=== PATIENT | female | born 1945 | race Caucasian/White ===

== ENCOUNTER → 2018-01-23 09:43 | Outpatient (CLI) | payer OTHER, SELFPAY ==
[2018-01-23 11:00] LABS: Add Manual Diff / Slide Review NO; Basophils Percent Auto 0.6 % (0-2); Eosinophils Percent Auto 1.9 % (2-4); Hematocrit 30.4 % (36-46); Hemoglobin 9.3 g/dL (12.0-16.0); Lymphocytes Percent Auto 19.2 % (25-40); Mean Corpuscular HGB Conc 30.6 % (30-36); Mean Corpuscular Hemoglobin 20.5 PG (26-34); Mean Corpuscular Volume 67.2 fL (80-100); Monocytes Percent Auto 8.6 % (3-14); Neutrophils Absolute Auto 5600 /uL (3000-5900); Neutrophils Percent Auto 69.7 % (50-75); Platelet Count 341 X10^3/uL (150-400); Red Blood Cell Count 4.53 X10^6/uL (4.0-5.2); Red Cell Distribution Width 20.3 % (11.6-14.8)
[2018-01-23 11:17] LABS: Alanine Aminotransferase 32 IU/L (9-52); Albumin Globulin Ratio 1.4 (1.0-2.8); Alkaline Phosphatase 68 U/L (38-126); Anisocytosis 2+; Aspartate Aminotransferase 26 IU/L (14-36); BUN Creatinine Ratio 17.5 (6-22); Bilirubin Total 0.3 mg/dL (0.2-1.3); Blood Urea Nitrogen 14 mg/dL (7-17); Calcium 9.1 mg/dL (8.4-10.2); Carbon Dioxide 31 mmol/L (22-32); Chloride 103 mmol/L (98-107); Estimated Glomerular Filt Rate > 60.0 mL/min (>60); Globulin 2.9 g/dL (1.7-4.1); Glucose 49 mg/dL (80-110); HEMOLYSIS < 15 (0-50); Hemoglobin A1C% w Est Avg Glu 8.1 % (4.0-6.0); Ovalocytes 1+; Potassium 4.2 mmol/L (3.4-5.1); Sodium 143 mmol/L (137-145); Target Cells 1+; Total Protein 6.9 g/dL (6.3-8.2)
[2018-01-23 11:23] LABS: HEMOLYSIS < 15 (0-50); Iron 27 ug/dL (37-170)
[2018-01-23 11:33] LABS: Percent Iron Saturation 6 % (15-50); Total Iron Binding Capacity 481 ug/dL (265-497); Transferrin 391 mg/dL (206-381)
== END ==
PROVIDERS: Family Provider Internal Medicine; PCP Internal Medicine; Visit Provider Internal Medicine
DX: J44.9 Chronic obstructive pulmonary disease, unspecified (principal); E10.9 Type 1 diabetes mellitus without complications
CPT/HCPCS: 36415; 80053; 83036; 83540; 83550; 85025

== ENCOUNTER → 2018-02-13 12:30 | Outpatient (CLI) | payer OTHER, SELFPAY ==
--- NOTE | 2018-02-13 12:32 | DI.RAD.S_ITS ---
PROCEDURE: XR ANKLE RT MIN 3V INDICATIONS: RIGHT ANKLE PAIN TECHNIQUE: 3 views of the ankle were acquired. COMPARISON: None. FINDINGS: Bones: No fractures or dislocations. Ankle mortise is normally aligned. No suspicious bony lesions. Soft tissues: No tibiotalar joint effusion. Achilles tendon appears normal. IMPRESSION: No acute bone or joint abnormality. Dictated by: Rahul Nash M.D. on 02/13/2018 at 12:51 Approved by: Rahul Nash M.D. on 02/13/2018 at 12:52
== END ==
PROVIDERS: Family Provider Internal Medicine; PCP Internal Medicine; Visit Provider Physician Assistant
DX: M25.571 Pain in right ankle and joints of right foot (principal)
CPT/HCPCS: 73610

== ENCOUNTER → 2018-02-18 11:12 | Outpatient (CLI) | payer OTHER, SELFPAY ==
[2018-02-18 12:30] LABS: Erythrocyte Sedimentation Rate 7 MM/HR (0-20)
[2018-02-18 17:20] LABS: Uric Acid 2.6 mg/dL (2.5-6.2)
[2018-02-18 17:21] LABS: C-Reactive Protein Quant < 0.5 mg/dL (<1.0)
== END ==
PROVIDERS: Family Provider Internal Medicine; PCP Internal Medicine; Visit Provider Internal Medicine
DX: M47.26 Other spondylosis with radiculopathy, lumbar region (principal)
CPT/HCPCS: 36415; 84550; 85651; 86140

== ENCOUNTER → 2018-03-07 09:33 | Outpatient (CLI) | payer OTHER, SELFPAY ==
[2018-03-07 10:43] LABS: Add Manual Diff / Slide Review NO; Basophils Percent Auto 0.9 % (0-2); Hematocrit 33.2 % (36-46); Hemoglobin 10.4 g/dL (12.0-16.0); Lymphocytes Percent Auto 11.1 % (25-40); Mean Corpuscular HGB Conc 31.3 % (30-36); Mean Corpuscular Hemoglobin 22.9 PG (26-34); Neutrophils Absolute Auto 6800 /uL (3000-5900); Platelet Count 342 X10^3/uL (150-400); Red Blood Cell Count 4.54 X10^6/uL (4.0-5.2); Red Cell Distribution Width 26.6 % (11.6-14.8); White Blood Cell Count 8.5 X10^3/uL (4.5-11.0)
[2018-03-07 10:49] LABS: Prothrombin Time 10.6 SECONDS (10.1-12.7)
[2018-03-07 10:52] LABS: HEMOLYSIS < 15 (0-50); Iron 32 ug/dL (37-170)
[2018-03-07 10:54] LABS: Alanine Aminotransferase 36 IU/L (9-52); Albumin 4.1 g/dL (3.5-5.0); Albumin Globulin Ratio 1.6 (1.0-2.8); Alkaline Phosphatase 79 U/L (38-126); Aspartate Aminotransferase 28 IU/L (14-36); BUN Creatinine Ratio 23.3 (6-22); Bilirubin Direct 0.3 mg/dL (0.0-0.4); Bilirubin Total 0.4 mg/dL (0.2-1.3); Blood Urea Nitrogen 21 mg/dL (7-17); Calcium 9.3 mg/dL (8.4-10.2); Carbon Dioxide 29 mmol/L (22-32); Chloride 97 mmol/L (98-107); Estimated Glomerular Filt Rate > 60.0 mL/min (>60); Globulin 2.5 g/dL (1.7-4.1); Glucose 289 mg/dL (80-110); HEMOLYSIS < 15 (0-50); Potassium 4.5 mmol/L (3.4-5.1); Sodium 136 mmol/L (137-145); Total Protein 6.6 g/dL (6.3-8.2)
[2018-03-07 11:04] LABS: Percent Iron Saturation 8 % (15-50); Total Iron Binding Capacity 416 ug/dL (265-497); Transferrin 354 mg/dL (206-381)
[2018-03-07 11:15] LABS: Anisocytosis 3+; Hypochromasia 3+; Microcytosis 3+
== END ==
PROVIDERS: Family Provider Internal Medicine; PCP Internal Medicine; Visit Provider Physician Assistant
DX: D50.9 Iron deficiency anemia, unspecified (principal); R19.5 Other fecal abnormalities
CPT/HCPCS: 36415; 80053; 82248; 83540; 83550; 85025; 85610

== ENCOUNTER 2018-03-17 06:32 | Day surgery (SDC) | payer OTHER, SELFPAY ==
[2018-03-17] MEDS: PROPARACAINE 0.5% OPHTH SOL 2 DROPS EYE-OP (06:54)
[2018-03-17] MEDS: CATARACT EYE COMPOUND (10 DROPS/SYRINGE) 3 DROPS EYE-OP (07:00)
[2018-03-17 07:01] VITALS: BMI 23.8
[2018-03-17 07:07] VITALS: BP 187/86; PULSE 66; RESP 16; TEMP 36.4; O2SAT 95
--- NOTE | 2018-03-17 07:44 | PM.PREOP ---
Pre-operative Note Interval Note Changes: No
--- NOTE | 2018-03-17 07:45 | P.OP_ITS ---
Operative Date/Time/Diagnoses Pre-op diagnosis: Cataract Right eye Post-op diagnosis: same Procedure & Clinicians Procedure: Cataract Surgery Same procedure as scheduled: Yes Surgeon: Ion Francis Anesthesia Type: MAC +/- and Sedation Operative Notes Procedure in detail: Patient brought to the operating suite. Tetracaine drops placed in the right eye. Patient was prepped and draped in sterile manner. Wire lid speculum was placed in the eye. Betadine drops were placed on the eye. This was irrigated. Lidocaine jelly was placed on the eye. A paracentesis port was created with a side-port blade. 0.1 mL 1% preservative free lidocaine was injected into the anterior chamber. The anterior chamber was deepened with viscoelastic. 2.6 mm keratome was used to create a temporal clear corneal incision. Cystotome and Utrata forceps were used to create continuous tear capsulorrhexis. Balanced salt solution was used to hydro dissect the nucleus. The phacoemulsification handpiece was inserted and the nucleus was removed using the stop and chop technique. The irrigation aspiration handpiece was inserted and the remaining cortex was removed. Anterior chamber was deepened with viscoelastic. An Munoz ZCB00 intraocular lens with a power of 17.5 was injected into the capsular bag. Irrigation aspiration handpiece was inserted and the remaining viscoelastic was removed. Incision was hydrated with balanced salt solution and found to be leak free with pressure with Weck- Carmen sponges. 0.1 mL Vigamox injected anterior chamber. 0.3 mL Kenalog 10 mg was injected subconjunctivally. Lid speculum was removed. The patient left the operating room in excellent condition. Complications: none Condition: stable Disposition: same day surgery
--- NOTE | 2018-03-17 07:45 | P.OP.PRE_ITS ---
Pre-operative Note Interval Note Changes: No
[2018-03-17] MEDS: LIDOCAINE JELLY 2% 5 ML 1 APPLIC TOP (08:03)
[2018-03-17] MEDS: CHONDROIDTIN/SOD HYALURONATE 1.05 ML SYRINGE INTRAOCULA (08:03)
[2018-03-17] MEDS: TETRACAINE 0.5% OPHTH DROPS 15 ML 2 DROPS EYE-RIGHT (08:04)
[2018-03-17] MEDS: TRIAMCINOLONE 50 MG/5 ML VIAL INJ (08:04)
[2018-03-17] MEDS: MOXIFLOXACIN OPHTH DROPS 3 ML BOTTLE 2 DROPS INJ (08:04)
[2018-03-17] MEDS: BALANCED SALT IRRIG SOLN NO.2 500 ML, EPINEPHrine 1 MG IRR (08:05)
[2018-03-17] MEDS: LIDOCAINE 1% 10 ML INJ INJ (08:07)
[2018-03-17 08:18] VITALS: BP 173/66; PULSE 77; RESP 16; TEMP 36.5; O2SAT 98
--- NOTE | 2018-03-17 08:22 | SUR.OPER ---
Supine on eye stretcher, head on extension cradle secured with tape. Arms tucked at sides with blanket. Pillow under knees.
[2018-03-17 08:40] VITALS: BP 115/67; PULSE 76; RESP 20; TEMP 36.2; O2SAT 97
--- NOTE | 2018-03-17 09:26 | SUR.PHASEII ---
pt was instructed to follow dr leia nicolas re starting eye drops 2 hours after leaving recovery
== END 2018-03-17 08:40 | disposition home or self-care (01) ==
PROVIDERS: Family Provider Internal Medicine; PCP Internal Medicine; Visit Provider Ophthalmology
DX: H25.11 Age-related nuclear cataract, right eye (principal); E11.9 Type 2 diabetes mellitus without complications; Z79.4 Long term (current) use of insulin; F17.210 Nicotine dependence, cigarettes, uncomplicated
CPT/HCPCS: J0171; J2250; J3010; J3301

== ENCOUNTER → 2018-04-02 14:00 | Outpatient (CLI) | payer OTHER, SELFPAY | PROVIDERS: Family Provider Internal Medicine; PCP Internal Medicine | DX: Z23 Encounter for immunization (principal) | CPT/HCPCS: 90471; 90662 ==

== ENCOUNTER 2018-04-07 06:31 | Day surgery (SDC) | payer OTHER, SELFPAY ==
[2018-04-07 07:13] VITALS: BP 163/77; PULSE 62; RESP 16; TEMP 36.4; O2SAT 99; BMI 23.8
[2018-04-07] MEDS: PROPARACAINE 0.5% OPHTH SOL 2 DROPS EYE-OP (07:15)
[2018-04-07] MEDS: CATARACT EYE COMPOUND (10 DROPS/SYRINGE) 3 DROPS EYE-OP (07:15)
[2018-04-07 07:28] VITALS: BMI 23.8
--- NOTE | 2018-04-07 07:50 | P.OP.PRE_ITS ---
Pre-operative Note Interval Note Changes: No
--- NOTE | 2018-04-07 07:50 | PM.PREOP ---
Pre-operative Note Interval Note Changes: No
--- NOTE | 2018-04-07 07:50 | PM.OP.1 ---
Operative Date/Time/Diagnoses Pre-op diagnosis: Cataract Left eye Post-op diagnosis: same Procedure & Clinicians Surgeon: Ion Francis Anesthesia Type: MAC +/- and Sedation Operative Notes Procedure in detail: Patient brought to the operating suite. Tetracaine drops placed in the left eye. Patient was prepped and draped in sterile manner. Wire lid speculum was placed in the eye. Betadine drops were placed on the eye. This was irrigated. Lidocaine jelly was placed on the eye. A paracentesis port was created with a side-port blade. 0.1 mL 1% preservative free lidocaine was injected into the anterior chamber. The anterior chamber was deepened with viscoelastic. 2.6 mm keratome was used to create a temporal clear corneal incision. Iris strands to the capsule were lysed with viscoelastic. Cystotome and Utrata forceps were used to create continuous tear capsulorrhexis. Balanced salt solution was used to hydro dissect the nucleus. The phacoemulsification handpiece was inserted and the nucleus was removed using the stop and chop technique. The irrigation aspiration handpiece was inserted and the remaining cortex was removed. Anterior chamber was deepened with viscoelastic. An Munoz ZCB00 intraocular lens with a power of 17.5 was injected into the capsular bag. Irrigation aspiration handpiece was inserted and the remaining viscoelastic was removed. Incision was hydrated with balanced salt solution and found to be leak free with pressure with Weck-Carmen sponges. 0.1 mL Vigamox injected anterior chamber. 0.3 mL Kenalog 10 mg was injected subconjunctivally. Lid speculum was removed. The patient left the operating room in excellent condition. Complications: none Condition: stable Disposition: same day surgery
[2018-04-07] MEDS: MOXIFLOXACIN OPHTH DROPS 3 ML BOTTLE 2 DROPS INJ (08:03)
[2018-04-07] MEDS: CHONDROIDTIN/SOD HYALURONATE 1.05 ML SYRINGE INTRAOCULA (08:03)
[2018-04-07] MEDS: LIDOCAINE JELLY 2% 5 ML 1 APPLIC TOP (08:03)
[2018-04-07] MEDS: PHENYLEPHRINE/LIDOCAINE VIAL (OR) 0.2 ML EYE-OP (08:04)
[2018-04-07] MEDS: BALANCED SALT IRRIG SOLN NO.2 500 ML, EPINEPHrine 1 MG IRR (08:04)
[2018-04-07] MEDS: TETRACAINE 0.5% OPHTH DROPS 15 ML 2 DROPS EYE-LEFT (08:04)
[2018-04-07] MEDS: TRIAMCINOLONE 50 MG/5 ML VIAL INJ (08:04)
[2018-04-07 08:16] VITALS: BP 142/72; PULSE 66; RESP 12; TEMP 36.8; O2SAT 98
== END 2018-04-07 08:25 | disposition home or self-care (01) ==
PROVIDERS: Family Provider Internal Medicine; PCP Internal Medicine; Visit Provider Ophthalmology
DX: H25.12 Age-related nuclear cataract, left eye (principal); E11.9 Type 2 diabetes mellitus without complications; E78.5 Hyperlipidemia, unspecified
CPT/HCPCS: J0171; J2250; J3010; J3301

== ENCOUNTER 2018-04-15 19:06 | Observation (INO) | payer OTHER, SELFPAY ==
[2018-04-15 19:22] VITALS: BP 161/68; PULSE 60; RESP 17; TEMP 35.6; O2SAT 100
[2018-04-15] MEDS: DEXTROSE 40% GEL (ORAL) 15 GM 15 ML PO (19:23)
[2018-04-15 19:31] LABS: Add Manual Diff / Slide Review NO; Basophils Percent Auto 0.6 % (0-2); Eosinophils Percent Auto 0.9 % (2-4); Hematocrit 38.7 % (36-46); Hemoglobin 12.2 g/dL (12.0-16.0); Lymphocytes Percent Auto 14.9 % (25-40); Mean Corpuscular HGB Conc 31.7 % (30-36); Mean Corpuscular Hemoglobin 24.9 PG (26-34); Mean Corpuscular Volume 78.7 fL (80-100); Monocytes Percent Auto 6.5 % (3-14); Neutrophils Absolute Auto 10500 /uL (3000-5900); Neutrophils Percent Auto 77.1 % (50-75); Platelet Count 295 X10^3/uL (150-400); Red Blood Cell Count 4.92 X10^6/uL (4.0-5.2); Red Cell Distribution Width 26.1 % (11.6-14.8); White Blood Cell Count 13.6 X10^3/uL (4.5-11.0)
[2018-04-15 19:36] LABS: BUN Creatinine Ratio 21.3 (6-22); Blood Urea Nitrogen 17 mg/dL (7-17); Calcium 9.2 mg/dL (8.4-10.2); Carbon Dioxide 32 mmol/L (22-32); Chloride 101 mmol/L (98-107); Estimated Glomerular Filt Rate > 60.0 mL/min (>60); Glucose 58 mg/dL (80-110); HEMOLYSIS < 15 (0-50); Potassium 3.1 mmol/L (3.4-5.1); Sodium 143 mmol/L (137-145)
[2018-04-15 19:50] LABS: Anisocytosis 2+; Microcytosis 1+
[2018-04-15] MEDS: DEXTROSE 50 % IN WATER 25 GM/50 ML SYRINGE IV (20:28)
[2018-04-15 20:30] VITALS: BP 150/46; PULSE 73; O2SAT 100
[2018-04-15] MEDS: SODIUM CHLORIDE 0.9% 1,000 ML 1000 ML IV (20:37)
[2018-04-15 21:00] VITALS: BP 164/134; PULSE 73; O2SAT 97
[2018-04-15] MEDS: POTASSIUM CHLORIDE 20 MEQ/15 ML UDC 40 MEQ PO (22:03)
[2018-04-15 22:20] VITALS: BP 156/72
[2018-04-15 22:30] VITALS: BP 180/96; PULSE 83; RESP 18; TEMP 36.4; O2SAT 97
[2018-04-15 22:39] VITALS: BMI 23.8
--- NOTE | 2018-04-15 22:57 | P.HP_ITS ---
History of Present Illness Chief complaint: not sure, doesnt feel right Narrative: HPI is obtained via direct interview with the patient, patient is a poor historian The patient is a 72-year-old female with PMH significant for DM 1T, HTN, HLD, COPD, GERD, OA, and prior history of tobacco dependence. Patient presented to the ED with disorientation. Symptom onset was sudden, the evening of 04/15/2018. Associated symptoms included lightheadedness, nausea, and shakiness. Patient denies chest pain, palpitations, dyspnea, and syncopal events. Denies recent weight loss. Denies excessive thirst or hunger. Denies recent illness and hospitalizations. Patient reports fair control of her diabetes with a reported HGB A1c in 7% range. Her diabetes is managed by her primary care provider. On 04/14/2018 she was started on an insulin pump. Patient reports 3-4 similar episodes in the past 3 months. Patient History Medical History COPD (chronic obstructive pulmonary disease) (Acute) Diabetes mellitus type 1 (Acute) Dyslipidemia (Acute) Essential hypertension (Acute) Former cigarette smoker (Acute) GERD (gastroesophageal reflux disease) (Acute) Hypoglycemia (Acute) Osteoarthritis (Acute) Surgical History Hx of cataract surgery (Acute) Family & Social History Family History: Reviewed 04/15/18 by JESSICA Colon Social History: household members friend(s) Patient lives with a friend. She does not use assistive devices for ambulation. Able to perform activities of daily living independently. Tobacco & Substance use: Smoking Status Former smoker, 0.5 to 1-1/2 packs per day, 45 years of tobacco dependence, quit 11/18/2017 alcohol intake frequency 0-2 drinks per day Substance Use Type does not use Meds Home Medications Medication Instructions Recorded Confirmed Type [FIBER THERAPY] 1 cap PO QDAY #0 07/15/17 03/17/18 History ascorbic acid (vitamin C) 1,000 mg PO QDAY #0 07/15/17 03/17/18 History fluticasone-salmeterol [Advair 1 puff INH BID #0 07/15/17 03/17/18 History Diskus] glucosamine sulfate [Kadi] 1 tab PO QDAY #0 07/15/17 03/17/18 History multivitamin [Multiple Vitamins] 1 tab PO QDAY #0 07/15/17 03/17/18 History amlodipine 5 mg tablet 5 mg PO DAILY 02/13/18 03/17/18 History aspirin 81 mg tablet,delayed 81 mg PO DAILY 02/13/18 03/17/18 History release blood sugar diagnostic strips #20 each 02/13/18 03/17/18 History bupropion HCl XL 300 mg 24 hr 300 mg PO QAM 02/13/18 03/17/18 History tablet, extended release calcium carbonate 1,000 1 tab PO DAILY tab 02/13/18 03/17/18 History mg-magnesium hydroxide 200 mg chewable tablet cholecalciferol (vitamin D3) 2,000 2,000 unit PO DAILY 02/13/18 03/17/18 History unit capsule cyanocobalamin (vit B-12) 500 mcg 500 mcg PO DAILY 02/13/18 03/17/18 History tablet iron, carbonyl 18 mg iron chewable 18 mg PO DAILY 02/13/18 03/17/18 History tablet omega-3 fatty acids 1,000 mg 1,000 mg PO DAILY 02/13/18 03/17/18 History capsule omeprazole magnesium 20 mg 40 mg PO DAILY 02/13/18 03/17/18 History tablet,delayed release pravastatin 40 mg tablet 40 mg PO DAILY 02/13/18 03/17/18 History trandolapril 4 mg tablet 4 mg PO DAILY 02/13/18 03/17/18 History insulin lispro [Humalog U-100 5 unit SUB-Q QACDINNER 03/17/18 03/17/18 History Insulin] Allergies Allergy/AdvReac Type Severity Reaction Status Date / Time No Known Drug Allergies Allergy Verified 04/16/18 01:02 Review of Systems Review of Systems All systems reviewed & are unremarkable except as noted in HPI and below Exam Vital Signs (past 8 hours): - 04/15/18 19:22 04/15/18 20:30 04/15/18 21:00 Temperature 96.1 F L Pulse Rate 60 73 73 Respiratory Rate 17 Blood Pressure 161/68 H Blood Pressure [Right Arm] 150/46 H 164/134 H Pulse Oximetry 100 100 97 04/15/18 22:20 Temperature Pulse Rate Respiratory Rate Blood Pressure Blood Pressure [Right Arm] 156/72 H Pulse Oximetry Oxygen Delivery Method Room Air Narrative Exam Narrative: Patient seen in the ED Const Other: No acute distress. Well-developed elderly female. [facility] Other: Normocephalic, atraumatic Eyes Other: Pupils equal and reactive, EOMI, gaze conjugate, no scleral icterus, no conjunctival drainage Neck Neck: normal visual inspection and full ROM Other: No lymphadenopathy, no JVD Chest Other: Normal inspection of chest, symmetrical chest rise Resp Other: Normal respiratory effort, no tachypnea or dyspnea, breath sounds diminished bilaterally, on room air Cardio Other: S1-S2, regular rate and rhythm, no murmur Dorsalis pedis pulses palpable bilaterally GI Other: Abdomen is soft, nontender, nondistended, normoactive bowel sounds Skin General: no rashes or lesions noted Neuro Other: Alert oriented x3, mildly forgetful, no facial asymmetry, no unilateral weakness Extrem General: full ROM and no clubbing, cyanosis or edema Psych Other: Alert and oriented x3, normal mood and affect Objective Labs Result Diagrams: 04/15/18 19:15 04/15/18 19:15 Labs: Laboratory Results - last 24 hr 04/15/18 04/15/18 19:15 19:15 WBC 13.6 H RBC 4.92 Hgb 12.2 Hct 38.7 MCV 78.7 L MCH 24.9 L MCHC 31.7 RDW 26.1 H Plt Count 295 Neut % (Auto) 77.1 H Lymph % (Auto) 14.9 L [place] % (Auto) 6.5 Eos % (Auto) 0.9 L Baso % (Auto) 0.6 Neut # (Auto) 34359 H RBC Morphology See below Anisocytosis 2+ H Microcytosis 1+ H Sodium 143 Potassium 3.1 L Chloride 101 Carbon Dioxide 32 BUN 17 Creatinine 0.80 Estimated GFR > 60.0 BUN/Creatinine Ratio 21.3 Glucose 58 L Calcium 9.2 Assessment & Plan Plan: Assessment/Plan Narrative: Hypoglycemia - admit to acute care - blood glucose checks every 2 hr - consider IV fluids with dextrose if continues to be hypoglycemic - CBC, BMP, Mg in a.m. Diabetes mellitus type 1, uncontrolled. A1C 8.1% (01/2018). S/p recent insulin pump initiation (04/14/18) - stop insulin pump Hypokalemia In the setting of hypoglycemia. Received 40 mEq KCL in the ED - Check K level w/ am lab Leukocytosis Potentially a pro inflammatory effect in the setting of hypoglycemia No fever. Vital signs stable. No indication of sepsis at this time. - CBC in a.m. Essential hypertension Blood pressure elevated, has not received evening anti-hypertensive - resume [employer] SANDER anti-hypertensive agents COPD without acute exacerbation - resume [employer] [employer]ER bronchodilators Dyslipidemia Controlled w/ statin, resume per home dose / regimen GERD, controlled w/ PPI, resume per home dose / regimen
[2018-04-16] VITALS (8 sets, daily range): BP systolic 127–159; BP diastolic 57–73; PULSE 76–95; RESP 16–20; TEMP 36.6–37.1; O2SAT 93–98
[2018-04-16] MEDS: INSULIN REGULAR 100 UNIT/ML 3 ML VIAL SUBCUT (01:08)
--- NOTE | 2018-04-16 01:27 | PC.NURSE ---
Addendum entered by Carlyn Giordano R.N. 04/16/18 06:45: Dr Graham informed of lab glucose of 309 this morning. Reviewed other CBG's during the night and bolus doses of insulin given. Order to give insulin via medium algorithm now and then prn with ACHS CBG checks. Original Note: Patient is alert and oriented. Breath sounds CTA with RA sat of 93%. HRR. Complains of nausea but with no emesis. BT present and abdomen is soft. Has been up x 2 to void this shift with output of 1800cc; denies dysuria, frequency, urgency or incontinence. Independent with bed mobility and seems steady on feet. CBG at 0000 was 365 and hospitalist informed and order received for SQ insulin which is given now; will recheck again at 0300. Fall risk score is moderate; bed alarm is activated and patient informed of safety protocol. Denies pain.
--- NOTE | 2018-04-16 01:57 | ED_ITS ---
HPI - General Adult General Chief complaint: Diabetic Problem Stated complaint: not sure, doesnt feel right Time Seen by Provider: 04/15/18 19:20 Source: patient and family Mode of arrival: ambulatory Limitations: no limitations History of Present Illness HPI narrative: 72-year-old female with history of type 2 diabetes, nonsmoker presents with a chief complaint of not feeling well. 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 She denies any headache or blurred vision, she denies any chest pain or shortness of breath. She is a bit nauseated and feels weak. She states she has been eating and drinking normally today. She is a type 2 diabetic but has been on insulin for about the past 15 years and she states she got a new insulin pump yesterday and today is her 1st full day using it. Onset (ago): hour(s) Radiation: non-radiation Severity: moderate Pain Consistency: constant Relieving factors: none Exacerbating factors: none Associated symptoms: confusion, malaise and nausea/vomiting Related Data Home Medications Medication Instructions Recorded Confirmed [FIBER THERAPY] 1 cap PO QDAY #0 07/15/17 03/17/18 ascorbic acid (vitamin C) 1,000 mg PO QDAY #0 07/15/17 03/17/18 fluticasone-salmeterol [Advair 1 puff INH BID #0 07/15/17 03/17/18 Diskus] glucosamine sulfate [Kadi] 1 tab PO QDAY #0 07/15/17 03/17/18 multivitamin [Multiple Vitamins] 1 tab PO QDAY #0 07/15/17 03/17/18 amlodipine 5 mg tablet 5 mg PO DAILY 02/13/18 03/17/18 aspirin 81 mg tablet,delayed 81 mg PO DAILY 02/13/18 03/17/18 release blood sugar diagnostic strips #20 each 02/13/18 03/17/18 bupropion HCl XL 300 mg 24 hr 300 mg PO QAM 02/13/18 03/17/18 tablet, extended release calcium carbonate 1,000 1 tab PO DAILY tab 02/13/18 03/17/18 mg-magnesium hydroxide 200 mg chewable tablet cholecalciferol (vitamin D3) 2,000 2,000 unit PO DAILY 07/27/18 08/28/18 unit capsule cyanocobalamin (vit B-12) 500 mcg 500 mcg PO DAILY 02/13/18 03/17/18 tablet iron, carbonyl 18 mg iron chewable 18 mg PO DAILY 02/13/18 03/17/18 tablet omega-3 fatty acids 1,000 mg 1,000 mg PO DAILY 02/13/18 03/17/18 capsule omeprazole magnesium 20 mg 40 mg PO DAILY 02/13/18 03/17/18 tablet,delayed release pravastatin 40 mg tablet 40 mg PO DAILY 02/13/18 03/17/18 trandolapril 4 mg tablet 4 mg PO DAILY 02/13/18 03/17/18 insulin lispro [Humalog U-100 5 unit SUB-Q QACDINNER 03/17/18 03/17/18 Insulin] Allergies Allergy/AdvReac Type Severity Reaction Status Date / Time No Known Drug Allergies Allergy Verified 04/16/18 01:02 Review of Systems Review of Systems All systems reviewed & are unremarkable except as noted in HPI and below Constitutional Denies chills, Reports fatigue, Denies fever(s), Denies lethargy and Reports weakness Eyes Denies change in vision, Denies eye discharge, Denies irritation and Denies loss of vision ENT Ears, Nose, Mouth, and Throat: Denies change in voice, Denies neck pain and Denies sore throat Cardiovascular Denies chest pain, Denies irregular heart rhythm, Denies lightheadedness, Denies palpitations, Denies dyspnea, Denies dyspnea on exertion and Denies orthopnea Respiratory Denies cough, Denies dyspnea, Denies dyspnea on exertion and Denies wheezing Gastrointestinal Gastrointestinal: Denies abdominal pain, Denies change in bowel habits, Denies diarrhea, Reports nausea and Denies vomiting Genitourinary Denies hematuria, Denies flank pain, Denies urinary incontinence and Denies urinary urgency Musculoskeletal Denies neck pain Integumentary/Breasts Denies pruritus, Denies erythema, Denies rash and Denies wounds Neurologic Reports confusion, Denies loss of vision and Reports weakness Psychiatric Denies anxiety, Reports confusion, Denies depression, Denies homicidal ideation and Denies suicidal ideation Endocrine Reports fatigue and Denies palpitations Hematologic/Lymphatic Denies easy bruising Allergic/Immunologic Denies wheezing [facility] Medical History COPD (chronic obstructive pulmonary disease) (Acute) Diabetes mellitus type 1 (Acute) Dyslipidemia (Acute) Essential hypertension (Acute) Former cigarette smoker (Acute) GERD (gastroesophageal reflux disease) (Acute) Hypoglycemia (Acute) Osteoarthritis (Acute) Surgical History Hx of cataract surgery (Acute) Family History Mother Heart disease Heart attack Father Dementia Bladder cancer Social History household members: friend(s) Smoking Status: Former smoker Exam Narrative Exam Narrative: Pleasant 72-year-old female appears to feel unwell Initial Vital Signs Initial Vital Signs: Vital Signs Temperature 96.1 F L 04/15/18 19:22 Pulse Rate 60 04/15/18 19:22 Respiratory Rate 17 04/15/18 19:22 Blood Pressure 161/68 H 04/15/18 19:22 Pulse Oximetry 100 04/15/18 19:22 Const General: cooperative, well developed and in distress Nutritional Appearance: well nourished Orientation: alert, awake, oriented x3 and confused [place] Head: normocephalic and atraumatic Ears: external ears normal and TM's normal bilaterally Nose: external nose normal and No nasal discharge Face and sinus: sinuses nontender, face symmetric, no sinus tenderness and No dry mucous membranes Mouth: oral mucosae normal and moist mucous membranes Teeth and gingiva: dentition normal Throat: tonsils normal and uvula midline Chest Chest: normal inspection of the chest Cardio Rate: regular rate Rhythm: regular rhythm Heart Sounds: no click, no gallops, no murmurs and no rubs Pulses: normal peripheral pulses Back/Spine/Pelvis Back: No CVA tenderness Cervical Spine: cervical ROM normal and No pain with cervical ROM Thoracic/Lumbar Spine: thoracic and lumbar spine normal to inspection Neuro General: alert, oriented x3, gait normal and no focal motor deficits Speech: speech normal Psych Appearance: well kempt Mental Status: mental status grossly normal Attitude: cooperative Thought Content: normal and suicidality Judgment: judgment good Scores GCS [place] coma scale eye opening: Spontaneous [place] coma scale verbal response: Orientated [place] coma scale motor response: Obey commands [place] coma scale total score: 15 Course Course Narrative: Known diabetic presents feeling unwell with initial blood glucose in the 40s. She was given juice and a sandwich and had improvement of symptoms the for period of time, labs were drawn and sent off and patient began feeling ill again at which point her blood glucose was remeasured and found to be in the 50s. At this point we learned that the patient had a new insulin pump. It became readily apparent that the patient would require admission for stabilization of her glucose and evaluation of the function of her pump. Decision to Admit Date: 04/15/18 Orders Ordered: ED Orders 04/15/18 19:15 Basic Metabolic Panel Stat Complete Blood Count AUTO DIFF Stat 04/16/18 06:00 Basic Metabolic Panel Routine Complete Blood Count AUTO DIFF Routine Magnesium Routine Acetaminophen (Tylenol) 650 mg PO Q6H PRN PRN Reason: As Needed for Fever/Mild Pain Amlodipine Besylate (Norvasc) 5 mg PO DAILY JOANN Aspirin (Aspirin Ec) 81 mg PO DAILY JOANN Cyanocobalamin (Vitamin B-12) 500 mcg PO DAILY JOANN Fish Oil (Fish Oil) 1,000 mg PO DAILY JOANN Multivitamins (Tab-A-Tyrel) 1 tab PO DAILY REPLACED BY [facility] Non-Formulary Medication (Trandolapril [Trandolapril]) 4 mg PO DAILY JOANN Pantoprazole Sodium (Protonix) 40 mg PO 0600 JOANN Pravastatin Sodium (Pravachol) 40 mg PO DAILY JOANN Fluticasone/Salmeterol (Advair 250/50 Diskus) 1 puff INH BID JOANN Vitamin D (Vitamin D3) 2,000 unit PO DAILY JOANN Discontinued Medications Dextrose (D50w) 25 gm IV NOW ONE Stop: 04/15/18 20:27 Last Admin: 04/15/18 20:28 Dose: 25 gm Glucose (Glutose 15) 15 gm PO NOW ONE Stop: 04/15/18 19:24 Last Admin: 04/15/18 19:23 Dose: 15 gm Sodium Chloride (Normal Saline 0.9%) 1,000 mls @ 1,000 mls/hr IV BOLUS ONE Stop: 04/15/18 21:33 Last Infusion: 04/15/18 22:21 Dose: 0 mls/hr Admin: 04/15/18 20:37 Dose: 1,000 mls/hr Insulin Human Regular (Humulin R) 5 unit SUBCUT NOW ONE Stop: 04/16/18 00:31 Last Admin: 04/16/18 01:08 Dose: 5 unit Non-Formulary Medication (Omeprazole Magnesium [Prilosec Otc]) 40 mg PO DAILY JOANN Potassium Chloride (Potassium Chloride) 40 meq PO NOW ONE Stop: 04/15/18 21:04 Last Admin: 04/15/18 22:03 Dose: 40 meq Consultations Consultation #1: Dr. Graham happy to accept Vital Signs - 8 hr 04/15/18 19:22 04/15/18 20:30 04/15/18 21:00 Temperature 96.1 F L Pulse Rate 60 73 73 Respiratory Rate 17 Blood Pressure 161/68 H Blood Pressure [Right Arm] 150/46 H 164/134 H Pulse Oximetry 100 100 97 04/15/18 22:20 04/15/18 22:30 04/16/18 00:05 Temperature 97.5 F L Pulse Rate 83 Respiratory Rate 18 Blood Pressure 180/96 H Blood Pressure [Right Arm] 156/72 H Pulse Oximetry 97 93 04/16/18 00:06 Temperature 97.9 F Pulse Rate 76 Respiratory Rate 18 Blood Pressure 159/73 H Blood Pressure [Right Arm] Pulse Oximetry 93 Medical Decision Making Lab Data Result diagrams: 04/15/18 19:15 04/15/18 19:15 Lab Results 04/15/18 04/15/18 Range/Units 19:15 19:15 WBC 13.6 H (4.5-11.0) X10^3/uL RBC 4.92 (4.0-5.2) X10^6/uL Hgb 12.2 (12.0-16.0) g/dL Hct 38.7 (36-46) % MCV 78.7 L (80-100) fL MCH 24.9 L (26-34) PG MCHC 31.7 (30-36) % RDW 26.1 H (11.6-14.8) % Plt Count 295 (150-400) X10^3/uL Neut % (Auto) 77.1 H (50-75) % Lymph % (Auto) 14.9 L (25-40) % [place] % (Auto) 6.5 (3-14) % Eos % (Auto) 0.9 L (2-4) % Baso % (Auto) 0.6 (0-2) % Neut # (Auto) 43274 H (8169-5558) /uL RBC Morphology See below Anisocytosis 2+ H Microcytosis 1+ H Sodium 143 (137-145) mmol/L Potassium 3.1 L (3.4-5.1) mmol/L Chloride 101 (98-107) mmol/L Carbon Dioxide 32 (22-32) mmol/L BUN 17 (7-17) mg/dL Creatinine 0.80 (0.52-1.04) mg/dL Estimated GFR > 60.0 (>60) mL/min BUN/Creatinine Ratio 21.3 (6-22) Glucose 58 L (80-110) mg/dL Calcium 9.2 (8.4-10.2) mg/dL Point of Care Testing Glucose POC 365 Point of care testing: Point of Care Testing Glucose POC 365 Discharge Plan Departure Patient Disposition: Admitted as Observation Clinical Impression: Hypoglycemia Discharge Date/Time: 04/15/18 22:23 Interventions: ED Discharge Assessment Last Done: 04/15/18 22:24 Admit Date/Time: 04/15/18 21:37 Admit Provider: Saira Graham
[2018-04-16] MEDS: INSULIN DETEMIR 100 UNIT/ML INSULN.PEN 10 UNIT SUBCUT (02:47)
[2018-04-16 05:41] LABS: Basophils Percent Auto 0.2 % (0-2); Hematocrit 37.4 % (36-46); Hemoglobin 12.1 g/dL (12.0-16.0); Lymphocytes Percent Auto 5.6 % (25-40); Mean Corpuscular HGB Conc 32.3 % (30-36); Mean Corpuscular Hemoglobin 25.3 PG (26-34); Mean Corpuscular Volume 78.4 fL (80-100); Monocytes Percent Auto 4.6 % (3-14); Neutrophils Absolute Auto 11200 /uL (3000-5900); Neutrophils Percent Auto 89.6 % (50-75); Platelet Count 245 X10^3/uL (150-400); Red Blood Cell Count 4.77 X10^6/uL (4.0-5.2); Red Cell Distribution Width 26.6 % (11.6-14.8); White Blood Cell Count 12.5 X10^3/uL (4.5-11.0)
[2018-04-16 05:42] LABS: BUN Creatinine Ratio 21.3 (6-22); Blood Urea Nitrogen 17 mg/dL (7-17); Calcium 8.7 mg/dL (8.4-10.2); Carbon Dioxide 30 mmol/L (22-32); Chloride 103 mmol/L (98-107); Estimated Glomerular Filt Rate > 60.0 mL/min (>60); Glucose 309 mg/dL (80-110); HEMOLYSIS < 15 (0-50); Magnesium 2.1 mg/dL (1.6-2.3); Potassium 4.3 mmol/L (3.4-5.1); Sodium 141 mmol/L (137-145)
[2018-04-16 05:46] LABS: Add Manual Diff / Slide Review SLIDE REVIEW
[2018-04-16 06:01] LABS: Anisocytosis 3+; Dimorphic RBC YES; Poikilocytosis 1+
[2018-04-16 06:03] LABS: Microcytosis 1+
[2018-04-16] MEDS: INSULIN ASPART 100 UNIT/ML INSULN PEN SUBCUT ×2 (07:03→12:13)
[2018-04-16 08:37] LABS: Glucose 409 mg/dL (80-110)
[2018-04-16] MEDS: INSULIN ASPART 100 UNIT/ML INSULN PEN 10 UNIT SUBCUT (09:16)
[2018-04-16] MEDS: CHOLECALCIFEROL (VITAMIN D3) 1,000 UNIT TABLET 2000 UNIT PO (09:20)
[2018-04-16] MEDS: MULTIVITAMIN 1 TABLET 1 TAB PO (09:20)
[2018-04-16] MEDS: AMLODIPINE 5 MG TABLET PO (09:20)
[2018-04-16] MEDS: CYANOCOBALAMIN (VITAMIN B-12) 500 MCG TABLET PO (09:20)
[2018-04-16] MEDS: ASPIRIN EC 81 MG TABLET PO (09:20)
[2018-04-16] MEDS: PRAVASTATIN 20 MG TABLET 40 MG PO (09:20)
[2018-04-16] MEDS: SODIUM CHLORIDE 0.9% FLUSH 10 ML IV (09:21)
[2018-04-16] MEDS: FISH OIL 1,000 MG CAPSULE 1000 MG PO (09:21)
--- NOTE | 2018-04-16 09:26 | PC.NURSE ---
Addendum entered by Helena Kraft R.N. 04/16/18 10:42: Rechecked BG @1000 as ordered, noted to be [address] Alves. Verbal order of 15 units Novolog now dose. Original Note: Patient BG 309 @ 7 am given 7 units of novolog. BG rechecked at 0750 and was 420 by fingerstick and [address] Graham notified and ordered 10 units one time stat and to have BG rechecked 45 minutes later. 10 units given @ 0916, Dr Graham at bedside @ 0934
[2018-04-16] MEDS: FLUTICASONE/SALMETEROL 250/50 14 PUFF DISKUS INH (10:26)
[2018-04-16] MEDS: INSULIN ASPART 100 UNIT/ML INSULN PEN 15 UNIT SUBCUT (10:59)
--- NOTE | 2018-04-16 13:41 | PM.PN.1 ---
Subjective Date Patient Seen: 04/16/18 Time Patient Seen: 13:42 Interval history: Patient seen at bedside. Doing well. No overnight events. No hypoglycemia episodes. Infact her BG started climbing up during the night and was 300+->400+ in am. Received Insulin aspart multiple doses. Now BG is 269. Will continue to monitor. Denies any symptoms. Exam Vital Signs (past 8 hours): - 04/16/18 07:33 04/16/18 08:16 04/16/18 10:30 Temperature 98.2 F Pulse Rate 95 H 82 Respiratory Rate 16 16 Blood Pressure 156/71 H Pulse Oximetry 96 96 98 04/16/18 11:50 Temperature 98.5 F Pulse Rate 78 Respiratory Rate 17 Blood Pressure 139/62 Pulse Oximetry 96 Fraction of Inspired Oxygen 0.21 Oxygen Delivery Method Room Air Oxygen Flow Rate 0 Narrative Exam Narrative: Gen: NAD, AAOx3 HEENT: PERRLA BL Neck: Supple, no LAD CV: RRR, no murmurs Resp: CTA BL, no wheezing GI: +BS, soft, nontender MSK: NL ROM Skin: No bruising Neuro: NFD Objective Labs Result Diagrams: 04/16/18 05:07 04/16/18 08:20 Labs: Laboratory Results - last 24 hr 04/15/18 04/15/18 04/16/18 19:15 19:15 05:07 WBC 13.6 H 12.5 H RBC 4.92 4.77 Hgb 12.2 12.1 Hct 38.7 37.4 MCV 78.7 L 78.4 L MCH 24.9 L 25.3 L MCHC 31.7 32.3 RDW 26.1 H 26.6 H Plt Count 295 245 Neut % (Auto) 77.1 H 89.6 H Lymph % (Auto) 14.9 L 5.6 L [place] % (Auto) 6.5 4.6 Eos % (Auto) 0.9 L 0.0 L Baso % (Auto) 0.6 0.2 Neut # (Auto) 38944 H 29220 H RBC Morphology See below See below Dimorphic RBCs Yes Poikilocytosis 1+ H Anisocytosis 2+ H 3+ H Microcytosis 1+ H 1+ H Sodium 143 Potassium 3.1 L Chloride 101 Carbon Dioxide 32 BUN 17 Creatinine 0.80 Estimated GFR > 60.0 BUN/Creatinine Ratio 21.3 Glucose 58 L Calcium 9.2 Magnesium 04/16/18 04/16/18 05:07 08:20 WBC RBC Hgb Hct MCV MCH MCHC RDW Plt Count Neut % (Auto) Lymph % (Auto) [place] % (Auto) Eos % (Auto) Baso % (Auto) Neut # (Auto) RBC Morphology Dimorphic RBCs Poikilocytosis Anisocytosis Microcytosis Sodium 141 Potassium 4.3 D Chloride 103 Carbon Dioxide 30 BUN 17 Creatinine 0.80 Estimated GFR > 60.0 BUN/Creatinine Ratio 21.3 Glucose 309 H D 409 H D Calcium 8.7 Magnesium 2.1 Assessment & Plan Plan: Assessment/Plan Narrative: 72yo F with PMH of DM, HLD, HTN, COPD, GERD presented to ED with hypoglycemia due to large dose of Insulin administration through insulin pump. Now hypoglycemia resolved and patient is hyperglycemic 1. Hypoglycemia - Likely due to 7U Insulin adminstration when BG was 129 - BG now 269 - Continue to monitor accuchecks and continue Sliding scale 2. Hypokalemia - Resolved 3. HTN - BP stable - Continue home medications 4. COPD - Continue home medication Advair 5. HLD - Continue Atrovastatin 6. GERD - Continue Pantoprazole therapy 7. Leukocytosis - Improving, likely reactive - Continue to monitor Dispo: possible discharge home if patient's BG is stable Quality VTE Deep Vein Thrombosis/Pulmonary Embolism Present on Admission: No
[2018-04-16] MEDS: EYE EYE-LEFT ×2 (14:40→16:54)
[2018-04-16] MEDS: PREDNISOLONE 1% EYE DROPS 1 EACH EYE-LEFT ×2 (14:40→16:54)
[2018-04-16] MEDS: TOBRAMYCIN 0.3% 1 EACH EYE-LEFT ×2 (14:40→16:54)
[2018-04-16] MEDS: KETOROLAC 0.5% EYE-LEFT ×2 (14:40→16:54)
--- NOTE | 2018-04-16 17:24 | P.DS_ITS ---
History of Present Illness Date Patient Seen: 04/16/18 Time Patient Seen: 17:21 Chief complaint: not sure, doesnt feel right Narrative: 72-year-old female with past medical history of diabetes type 1, hypertension, hyperlipidemia, COPD, GERD, osteoarthritis presented to emergency department complaining of disorientation. Patient was in the hospital volunteering when she went to the restroom, and states that she must have lost consciousness for a brief moment. She then called for help and was taken to emergency department. At the emergency department patient was found to have glucose of 43. She was given glucose by mouth as well as some food with blood glucose increasing to 50. She was then given D50 and transferred to floors for further therapy. Of note patient states that 1 hr prior to the incident, patient checked her blood glucose and was found to be 129. She then decided to eat a candy bar and calculated g of carbohydrates to be 42. Therefore patient decided to take 7 units of insulin, which led to episode of hypoglycemia. Discharge Providers Date of admission: 04/15/18 21:37 Primary care physician: Maynor Mae MD Consults: 04/16/18 14:49 Consult to Dietitian, Adult Routine Comment: Call [phone] and we can fill you in. Needs consult Reason For Exam: Blood sugars are out of control. has a pump. Discharge provider: Saira Graham MD Summary Discharge Diagnosis: Hypoglycemia- resolved Hospital Course: Patient was admitted to acute care unit. blood glucose was checked every 2 hrs. Her blood glucose remained stable in started to go up. By the morning, at 5:00 a.m. patient's blood glucose was 300+. Patient was given 7 units of insulin and blood glucose was rechecked 1 hr later. The repeat blood glucose was 409. Patient was given another 10 units of insulin with breakfast. Repeat blood glucose was 411. She was then given and 15 units of insulin with blood glucose decreasing to 269. She continued on blood glucose checks every 2 hr with insulin sliding scale in place. Her blood glucose normalized between 140 and 200 range on subsequent 4 checks. Dietitian was consulted to make sure the patient understood and the proper timing, quantity, and administration of insulin. Patient was discharged home with instructions to resume her insulin pump. Status at Discharge Functional status at discharge: independent ambulation Overall status at discharge: patient is back to baseline Time Spent with Patient Less than 30 minutes Exam Vital Signs (past 8 hours): - 04/16/18 10:30 04/16/18 11:50 04/16/18 15:25 Temperature 98.5 F 98.8 F Pulse Rate 82 78 80 Respiratory Rate 16 17 20 Blood Pressure 139/62 149/57 H Pulse Oximetry 98 96 96 Fraction of Inspired Oxygen 0.21 Oxygen Delivery Method Room Air Oxygen Flow Rate 0 Narrative Exam Narrative: Patient seen in the ED Const Other: No acute distress. Well-developed elderly female. HENMT Other: Normocephalic, atraumatic Eyes Other: Pupils equal and reactive, EOMI, gaze conjugate, no scleral icterus, no conjunctival drainage Neck Neck: normal visual inspection and full ROM Other: No lymphadenopathy, no JVD Chest Other: Normal inspection of chest, symmetrical chest rise Resp Other: Normal respiratory effort, no tachypnea or dyspnea, breath sounds diminished bilaterally, on room air Cardio Other: S1-S2, regular rate and rhythm, no murmur Dorsalis pedis pulses palpable bilaterally GI Other: Abdomen is soft, nontender, nondistended, normoactive bowel sounds Skin General: no rashes or lesions noted Neuro Other: Alert oriented x3, mildly forgetful, no facial asymmetry, no unilateral weakness Extrem General: full ROM and no clubbing, cyanosis or edema Psych Other: Alert and oriented x3, normal mood and affect Objective Labs Result Diagrams: 04/16/18 05:07 04/16/18 08:20 Labs: Laboratory Results - last 24 hr 04/15/18 04/15/18 04/16/18 19:15 19:15 05:07 WBC 13.6 H 12.5 H RBC 4.92 4.77 Hgb 12.2 12.1 Hct 38.7 37.4 MCV 78.7 L 78.4 L MCH 24.9 L 25.3 L MCHC 31.7 32.3 RDW 26.1 H 26.6 H Plt Count 295 245 Neut % (Auto) 77.1 H 89.6 H Lymph % (Auto) 14.9 L 5.6 L [place] % (Auto) 6.5 4.6 Eos % (Auto) 0.9 L 0.0 L Baso % (Auto) 0.6 0.2 Neut # (Auto) 43822 H 10623 H RBC Morphology See below See below Dimorphic RBCs Yes Poikilocytosis 1+ H Anisocytosis 2+ H 3+ H Microcytosis 1+ H 1+ H Sodium 143 Potassium 3.1 L Chloride 101 Carbon Dioxide 32 BUN 17 Creatinine 0.80 Estimated GFR > 60.0 BUN/Creatinine Ratio 21.3 Glucose 58 L Calcium 9.2 Magnesium 04/16/18 04/16/18 05:07 08:20 WBC RBC Hgb Hct MCV MCH MCHC RDW Plt Count Neut % (Auto) Lymph % (Auto) [place] % (Auto) Eos % (Auto) Baso % (Auto) Neut # (Auto) RBC Morphology Dimorphic RBCs Poikilocytosis Anisocytosis Microcytosis Sodium 141 Potassium 4.3 D Chloride 103 Carbon Dioxide 30 BUN 17 Creatinine 0.80 Estimated GFR > 60.0 BUN/Creatinine Ratio 21.3 Glucose 309 H D 409 H D Calcium 8.7 Magnesium 2.1 Discharge Plan Discharge Plan Patient Disposition: Home Discharge Med Rec/Prescriptions Prescriptions: Continue amlodipine 5 mg tablet 5 mg PO DAILY RF: 0 bupropion HCl 300 mg tablet extended release 24 hr 300 mg PO QAM RF: 0 pravastatin 40 mg tablet 40 mg PO DAILY RF: 0 trandolapril 4 mg tablet 4 mg PO DAILY RF: 0 omeprazole magnesium [Prilosec OTC] 20 mg tablet,delayed release (DR/EC) 40 mg PO DAILY RF: 0 aspirin [Adult Low Dose Aspirin] 81 mg tablet,delayed release (DR/EC) 81 mg PO DAILY RF: 0 calcium carbonate-mag hydroxid 1,000-200 mg tablet,chewable 1 tab PO DAILY RF: 0 cyanocobalamin (vitamin B-12) [Vitamin B-12] 500 mcg tablet 500 mcg PO DAILY RF: 0 cholecalciferol (vitamin D3) 2,000 unit capsule 2,000 unit PO DAILY RF: 0 omega-3 fatty acids [Fish Oil Concentrate] 1,000 mg capsule 1,000 mg PO DAILY RF: 0 iron, carbonyl [Ferretts Carbonyl Iron] 18 mg iron tablet,chewable 18 mg PO DAILY RF: 0 fluticasone-salmeterol [Advair Diskus] 250 MCG/50 MCG blister with device 1 puff INH BID Qty: 0 RF: 0 multivitamin [Multiple Vitamins] 1 EACH tablet 1 tab PO QDAY Qty: 0 RF: 0 ascorbic acid (vitamin C) 500 MG tablet 1,000 mg PO QDAY Qty: 0 RF: 0 [FIBER THERAPY] 1 cap PO QDAY Qty: 0 RF: 0 glucosamine sulfate [Kadi] 750 MG tablet 1 tab PO QDAY Qty: 0 RF: 0 insulin lispro [Humalog U-100 Insulin] 100 unit/mL Cartridge 1.8 ml Continuous Subcutaneous Infusion Q3D RF: 0 ketorolac 0.5 % Drops 1 drp EYE-LEFT QID RF: 0 prednisolone acetate 1 % Drops,Suspension 1 drp EYE-LEFT QID RF: 0 tobramycin 0.3 % Drops 1 drp EYE-LEFT QID RF: 0 No Action blood sugar diagnostic [Contour Next Test Strips] strip .ROUTE .MEDSUPPLY Qty: 20 RF: 0 Follow up/Referrals: Maynor Mae MD [Primary Care Provider] - 1 Week (patient needs proper education on using insulin pump) Provider Discharge Instructions Diet: Carb-consistent/Diabetic Discharge Data Primary Care Provider: Maynor Mae Attending Provider: Saira Graham Admit Date/Time: 04/15/18 21:37 Quality VTE Deep Vein Thrombosis/Pulmonary Embolism Present on Admission: No
== END 2018-04-16 18:25 | disposition home or self-care (01) ==
LOC: ED 19:18 → AC 21:38
PROVIDERS: Nurse Practitioner Gerontology; Admitting Provider Internal Medicine; Emergency Provider Emergency Medicine; Family Provider Internal Medicine; PCP Internal Medicine; Visit Provider Internal Medicine
DX: E10.649 Type 1 diabetes mellitus with hypoglycemia without coma (principal); R11.0 Nausea; Z96.41 Presence of insulin pump (external) (internal); Z79.4 Long term (current) use of insulin; E87.6 Hypokalemia; D72.829 Elevated white blood cell count, unspecified; I10 Essential (primary) hypertension; J44.9 Chronic obstructive pulmonary disease, unspecified; E78.5 Hyperlipidemia, unspecified
CPT/HCPCS: 36415; 36591; 80048; 82947; 82962; 83735; 85025; 93005; 94640; 94760; 96361; 96374; 99282; 99284; G0378; A9270

== ENCOUNTER → 2018-04-30 14:47 | Outpatient (CLI) | payer OTHER, SELFPAY ==
[2018-04-15 22:39] VITALS: BMI 23.8
[2018-04-30 15:27] LABS: Add Manual Diff / Slide Review NO; Basophils Percent Auto 0.7 % (0-2); Eosinophils Percent Auto 2.6 % (2-4); Hematocrit 38.3 % (36-46); Hemoglobin 12.2 g/dL (12.0-16.0); Lymphocytes Percent Auto 19.4 % (25-40); Mean Corpuscular HGB Conc 31.8 % (30-36); Mean Corpuscular Hemoglobin 25.8 PG (26-34); Mean Corpuscular Volume 81.3 fL (80-100); Monocytes Percent Auto 5.6 % (3-14); Neutrophils Absolute Auto 5500 /uL (3000-5900); Neutrophils Percent Auto 71.7 % (50-75); Platelet Count 288 X10^3/uL (150-400); Red Blood Cell Count 4.71 X10^6/uL (4.0-5.2); Red Cell Distribution Width 24.2 % (11.6-14.8); White Blood Cell Count 7.7 X10^3/uL (4.5-11.0)
[2018-04-30 15:34] LABS: Hemoglobin A1C% w Est Avg Glu 7.9 % (4.0-6.0)
[2018-04-30 16:03] LABS: HEMOLYSIS < 15 (0-50); Iron 86 ug/dL (37-170)
[2018-04-30 16:14] LABS: Percent Iron Saturation 25 % (15-50); Total Iron Binding Capacity 349 ug/dL (265-497); Transferrin 309 mg/dL (206-381)
[2018-04-30 17:41] LABS: Anisocytosis 3+; Hypochromasia 1+; Microcytosis 1+
== END ==
PROVIDERS: PCP Internal Medicine; Visit Provider Internal Medicine
DX: D64.9 Anemia, unspecified (principal); E10.9 Type 1 diabetes mellitus without complications
CPT/HCPCS: 36415; 83036; 83540; 83550; 85025

== ENCOUNTER → 2018-06-16 16:01 | Outpatient (CLI) | payer OTHER, SELFPAY ==
--- NOTE | 2018-06-16 16:03 | DI.RAD.S_ITS ---
PROCEDURE: XR SHOULDER RT MIN 2V INDICATIONS: Fall TECHNIQUE: 2 views of the shoulder were acquired. COMPARISON: [facility], CR, XR ELBOW RT MIN 3V, 06/16/2018, 16:04. [facility], CR, SHOULDER MINIMUM 2 VIEW LEFT, 03/07/2015, 14:26. FINDINGS: Bones: There is a moderately displaced, comminuted fracture of the right humeral head and neck. No additional fractures are seen. No displaced rib fractures are seen. No suspicious lytic or blastic lesions are seen. Age-appropriate bony degenerative changes are seen. Soft tissues: No suspicious soft tissue calcifications. The visualized lung demonstrates an unremarkable appearance. IMPRESSION: Moderately displaced, comminuted fracture of the right humeral head and neck. If it would be helpful for clinical management decision making, please consider a dedicated shoulder CT for further evaluation. Dictated by: Pio Pineda M.D. on 06/16/2018 at 15:44 Approved by: Pio Pineda M.D. on 06/16/2018 at 15:46
--- NOTE | 2018-06-16 16:03 | DI.RAD.S_ITS ---
PROCEDURE: XR ELBOW RT MIN 3V INDICATIONS: Fall TECHNIQUE: 3 views of the elbow were acquired. COMPARISON: [facility], CR, XR SHOULDER RT MIN 2V, 06/16/2018, 16:04. FINDINGS: Bones: There is mild focal irregularity seen of the radial head and no additional fractures or dislocations are seen. Soft tissues: No joint effusion seen, with elevation of the anterior fat pad and a visible posterior fat pad. IMPRESSION: Joint effusion. Likely minimally displaced radial head fracture. Please correlate with focal tenderness. If it would be helpful for clinical management decision making, please consider a dedicated elbow CT for further evaluation. Dictated by: Pio Pineda M.D. on 06/16/2018 at 15:42 Approved by: Pio Pineda M.D. on 06/16/2018 at 15:44
== END ==
PROVIDERS: Family Provider Internal Medicine; PCP Internal Medicine; Visit Provider Physician Assistant
DX: S42.291A Other displaced fracture of upper end of right humerus, initial encounter for closed fracture (principal); M25.511 Pain in right shoulder; M25.421 Effusion, right elbow
CPT/HCPCS: 73030; 73080

== ENCOUNTER → 2018-06-17 14:14 | Outpatient (CLI) | payer OTHER, SELFPAY ==
--- NOTE | 2018-06-17 14:16 | DI.CT.S_ITS ---
PROCEDURE: CT UE RT WO CON INDICATIONS: Humerous fracture TECHNIQUE: Noncontrast 1-1.5 mm thick sections acquired from the acromioclavicular joint to the inferior scapula, with coronal and sagittal reformatting. COMPARISON: [facility], CR, XR SHOULDER RT MIN 2V, 06/16/2018, 16:04. [facility], CR, XR ELBOW RT MIN 3V, 06/16/2018, 16:04. FINDINGS: Image quality: Diagnostic. Bones: There is a comminuted and mildly impacted fracture evident involving the proximal aspect of the humeral head. There is involvement of both the greater and lesser tuberosity with an additional vertical fracture extending into the proximal metaphyseal region. Irregularity along the inferior margin of the glenoid is present. There are degenerative changes of the glenohumeral and acromioclavicular joints. No suspicious osseous lesions are identified. The remainder of the imaged osseous structures are grossly intact. Soft tissues: Prominent soft tissue edema is present about the shoulder. There is a large glenohumeral joint effusion. There is also edema about the deltoid muscle, distally. Portal and prominent axillary lymph nodes appear to be present in the right. Included portions of the right lung are unremarkable. IMPRESSION: 1. Complex proximal humeral fracture most likely represents a Neer 3 part fracture. 2. Possible subtle fracture involving the inferior margin of the glenoid versus degenerative osteophyte. 2. Degenerative changes of the right shoulder joint. 4. Prominent edema/hemorrhage within the soft tissues of the right upper arm. Dictated by: Adán Singh M.D. on 06/17/2018 at 14:02 Approved by: Adán Singh M.D. on 06/17/2018 at 14:08
== END ==
PROVIDERS: Family Provider Internal Medicine; PCP Internal Medicine; Visit Provider Physician Assistant
DX: M84.421A Pathological fracture, right humerus, initial encounter for fracture (principal); M19.011 Primary osteoarthritis, right shoulder; R60.0 Localized edema
CPT/HCPCS: 73200

== ENCOUNTER → 2018-06-19 10:33 | Outpatient (CLI) | payer OTHER, SELFPAY ==
[2018-06-19 11:41] LABS: Add Manual Diff / Slide Review NO; Basophils Percent Auto 0.5 % (0-2); Eosinophils Percent Auto 0.4 % (2-4); Hematocrit 36.3 % (36-46); Hemoglobin 12.1 g/dL (12.0-16.0); Lymphocytes Percent Auto 13.7 % (25-40); Mean Corpuscular HGB Conc 33.3 % (30-36); Mean Corpuscular Volume 87.1 fL (80-100); Monocytes Percent Auto 8.7 % (3-14); Neutrophils Absolute Auto 7200 /uL (3000-5900); Neutrophils Percent Auto 76.7 % (50-75); Platelet Count 240 X10^3/uL (150-400); Red Blood Cell Count 4.17 X10^6/uL (4.0-5.2); Red Cell Distribution Width 16.1 % (11.6-14.8); White Blood Cell Count 9.4 X10^3/uL (4.5-11.0)
[2018-06-19 11:59] LABS: Hemoglobin A1C% w Est Avg Glu 7.9 % (4.0-6.0)
[2018-06-19 12:05] LABS: BUN Creatinine Ratio 22.9 (6-22); Blood Urea Nitrogen 16 mg/dL (7-17); Calcium 9.3 mg/dL (8.4-10.2); Carbon Dioxide 31 mmol/L (22-32); Chloride 100 mmol/L (98-107); Estimated Glomerular Filt Rate > 60.0 mL/min (>60); Glucose 188 mg/dL (80-110); HEMOLYSIS < 15 (0-50); Sodium 142 mmol/L (137-145)
== END ==
PROVIDERS: Family Provider Internal Medicine; PCP Internal Medicine; Visit Provider Physician Assistant Surgical
DX: Z01.818 Encounter for other preprocedural examination (principal); Z01.812 Encounter for preprocedural laboratory examination; N39.9 Disorder of urinary system, unspecified; Z13.1 Encounter for screening for diabetes mellitus
CPT/HCPCS: 36415; 80048; 83036; 85025; 93005

== ENCOUNTER 2018-06-26 06:19 | Inpatient (IN) | payer OTHER, SELFPAY ==
[2018-06-24 09:15] VITALS: BMI 25.7
[2018-06-26] VITALS (15 sets, daily range): BP systolic 121–179; BP diastolic 51–87; PULSE 73–101; RESP 10–28; TEMP 36.5–37.4; O2SAT 93–100; BMI 25.7
--- NOTE | 2018-06-26 | DI.RAD.S_ITS ---
PROCEDURE: XR SHOULDER RT MIN 2V INDICATIONS: total right shoulder TECHNIQUE: 1 views of the shoulder were acquired. COMPARISON: [facility], , XR SHOULDER RT MIN 2V, 06/16/2018, 16:04. FINDINGS: Right shoulder arthroplasty is present with near anatomic alignment. Hardware is intact. Surgical drain is noted. Acromioclavicular degenerative narrowing is present. Previous areas of fracture lucency are partially visualized.. IMPRESSION: Right shoulder arthroplasty as above. Dictated by: Nereida Ferguson M.D. on 06/26/2018 at 11:18 Approved by: Nereida Ferguson M.D. on 06/26/2018 at 11:19
--- NOTE | 2018-06-26 07:38 | PM.PREOP ---
Pre-operative Note Interval Note Pre-op Check: Yes History & Physical Reviewed by Physician and Yes Exam Performed Changes: No
--- NOTE | 2018-06-26 07:38 | PM.OP.1 ---
Operative Date/Time/Diagnoses Date of procedure: 06/26/18 Time of procedure: 10:30 Pre-op diagnosis: Displaced four part fracture of the right proximal humerus Post-op diagnosis: same Procedure & Clinicians Procedure: 1. Reverse total shoulder replacement, right shoulder 2. Open reduction internal fixation of greater and lesser tuberosity fractures Same procedure as scheduled: Yes Indications: The patient is a 72-year-old woman who sustained the proximal humerus fracture in a ground level fall. This is badly displaced and comminuted. She has agreed to the above-noted procedure after discussion the risks benefits and alternatives. Risks discussed included but were not limited to: Failure to return to full function, failure of complete pain relief, infection, nerve damage, stiffness, deep venous thrombosis, pulmonary embolism, stroke, myocardial infarction, permanent paralysis and . Surgeon: Ion Hall Car Designer: Ivanna Sales Click Yes if Unassisted: No Anesthesia Type: General, Peripheral nerve block and Local Operative Notes Findings: Displaced comminuted proximal humerus fracture on the right. Closure Type: primary Specimen(s): none sent Implants & Drains: Implants used in this procedure were manufactured by the [employer] and included an Altivate reverse total shoulder system with a size 8 mm standard stem, this was cemented into place and there was a bio-absorbable distal cement restrictor placed. There was also a 30 mm RSP glenoid base plate, 3 locking screws measuring 26, 34 and 14 mm in length. A 32 mm neutral glenoid head with retaining screw and a 32 mm standard humeral socket. Applied: implant(s) Estimated Blood Loss (mL): 150 Blood products transfused: none Procedure in detail: The patient was seen in the preoperative area where they identified the right shoulder as the operative site and this was marked with my initials. She received preoperative antibiotics with an appropriate 1st generation cephalosporin and underwent the induction of an interscalene block. They were taken to the operating room and placed on the operating room table in a supine position wherer she underwent the induction of a general anesthetic. There were then repositioned in the ?beach chair? position using a dedicated positioner. All pressure points were well padded. The knees were slightly bent to prevent tension on the sciatic nerves. A sweeper operator highways-out was performed. The right arm was prepared from the fingertips to the base of the neck with ChloraPrep in the usual fashion and draped through sterile drapes. An approximately 15 cm incision was created starting at the clavicle just above the coracoid and going to the deltoid insertion. The deltopectoral interval was used to access the shoulder taking the vein to the medial side. The vein was protected throughout the case. The upper 1 cm of the pectoralis major was released. The biceps tendon was identified and used as a guide to the joint given the altered fractured anatomy. The biceps itself was tenodesed over the pectoralis tendon using a suture. The bicipital groove was osteotomy my stay as in this patient the tuberosities had come off in 1 large fragment. The lesser tuberosity and subscapularis were tagged for later repair. 3 sutures that would eventually be used as cerclage sutures were placed around the greater tuberosity. The humeral head was removed and morselized for use as bone graft. Retractors were placed access the glenoid. The soft tissues were removed circumferentially around the glenoid. The guide was used to drill the guide hole in the center of the inferior glenoid. The tap was placed and used as a guide for the reamer. The tap was then removed and the glenoid base plate inserted. The peripheral locking screws were then placed through the appropriate guide. The anterior locking screw was not used due to very thin bone in that quadrant. A trial glenoid head was applied. We then turned our attention to the humerus. Cylindrical reamers were used to size the canal. There was no need for broaching given the destruction of the proximal humerus. The appropriate broach was assembled as a trial and the shoulder was relocated. I carefully assessed length using the greater tuberosity fragment as a guide. The appropriate depth of insertion was marked on the trial with a pen and this [place] was then transferred to the final prosthesis when it was opened. The appropriate final prosthetic components were then opened. The glenoid head was impacted into position and checked for rotational and axial stability before placing the set screw. Drill holes for tension band sutures for the greater and lesser tuberosities were performed and sutures placed. The cement restrictor was placed, cement was injected and the humeral prosthetic was then impacted into position. This was carefully set to the predetermined depth and rotation was set using the guide on the broach handle for 30? retroversion. The humeral cup was placed. The joint was relocated and irrigated. The 3 sutures from the greater tuberosity were placed around the humeral neck. I had initially planned to place them through the hole in the prosthetic but this was not accessible and therefore the sutures were merely placed around the entire stem. The tuberosity fracture fragments were reduced around the stem. Bone graft was placed in the hole in the stem and around the stem to aid with healing of the tuberosities. Initially 2 sutures were placed in [id number] fashion in the rotator cuff interval to reapproximate the subscapularis and supraspinatus appropriately. The 3 cerclage sutures around the tuberosities were then tied from top to bottom. Finally the tension band sutures were tied. Unfortunately the tension band suture for the lesser tuberosity broke. As this was placed through the cement mantle next to the stem this could not be replaced. I checked the stability of the construct there did not appear to be a tendency for dislocation. The tuberosities moved as a unit with the humeral shaft. A deep drain was placed. The deltopectoral interval was reapproximated with 0 Vicryl. Subcutaneous layer was closed with interrupted 3-0 Vicryl and skin with a running 3 0 V lock suture. Subcutaneous tissues were then infiltrated with 0.5% Marcaine for postoperative pain control. An Aquacel Ag dressing was applied and the patient's arm was placed in a sling. The patient was then transferred to the recovery room in good condition having tolerated the procedure well. Complications: none Condition: stable Disposition: PACU Plan for aftercare: The patient will be maintained on pendulum exercises only for the next 6 weeks. She will be discharged from the hospital when stable for her home environment. Her diabetes will be managed by the hospitalist service while she is in the hospital.
[2018-06-26] MEDS: INSULIN NPH 100 UNIT/ML VIAL 10 UNIT SUBCUT (07:53)
[2018-06-26] MEDS: CEFAZOLIN 2 GM/100 ML FROZ.PIGGY IV ×3 (08:10→23:38)
[2018-06-26] MEDS: TRANEXAMIC ACID 1,000 MG VIAL 2000 MG INJ (08:37)
--- NOTE | 2018-06-26 08:43 | SUR.OPER ---
Beach chair with Toan/Vipul shoulder positioner. Lower body on padded OR bed. Head in foam padded head cradle, secured with straps. Non-operative arm secured <90 degrees abduction. Pillow under knees. Safety belt at thigh. Cloth tape over blanket over lower legs.
--- NOTE | 2018-06-26 08:46 | PC.NURSE ---
Day shift: Pt not on this AC unit at this time.
--- NOTE | 2018-06-26 09:04 | PM.PROC.1 ---
Procedures Date/Time Date of procedure: 06/26/18 Time of procedure: 07:45 General Procedure description: Ultrasound guided interscalene brachial plexus nerve block for post op pain control after right total shoulder arthroplasty by Dr. Hall. Risk and benefits of procedure discussed with patient. ASA monitoring applied to patient. O2 given via nasal cannula. 1 mg Versed and 50 mcg fentanyl given for procedural sedation. Skin site was prepped with chlorhexidine and allowed to fully dry. Sterile gloves, mask, hat and probe cover were used to maintain sterility. 2% lidocaine and 30ga needle was used to make a small skin wheal at needle insertion site. Under ultrasound guidance, a 21ga 50mm Pajunk needle was directed into the interscalene groove (middle/anterior scalenes) near the brachial plexus. Patient reported no parasthesias. After negative aspiration, 12 mL 0.5% ropivicaine and 6mg dexamethasone were injected around brachial plexus. Care was taken to avoid high volume injection or superior injection to reduce chance of phrenic nerve palsy in patient with mild COPD. Patient tolerated procedure well.
--- NOTE | 2018-06-26 09:19 | SUR.OPER ---
[facility] 3307 at 0915, Dr. Robles gave 7units novolog sq
[2018-06-26] MEDS: INSULIN ASPART 100 UNIT/ML 10ML VIAL SUBCUT (09:22)
[2018-06-26] MEDS: BUPIVACAINE 0.5% W/ EPI (PF) VIAL 10 ML INJ (09:43)
--- NOTE | 2018-06-26 10:29 | SUR.OPER ---
[facility] 268 at 102
[2018-06-26] MEDS: LACTATED RINGERS 1,000 ML 42 ML IV (10:44)
--- NOTE | 2018-06-26 11:30 | SUR.PHASEI ---
Dr. Robles notified [facility] [place] [facility]. Pt may restart insulin pump per Dr. Robles. Pump brought by pt's son but pump is without the insulin set. No additional insulin needed at this time per Dr. Robles.
--- NOTE | 2018-06-26 11:38 | SUR.PHASEI ---
Report called to [place].
--- NOTE | 2018-06-26 11:50 | PC.NURSE ---
Day shift: On unit at approx 1145 from PACU. Denies pain. VS WNL. RA 96%. Oriented to room and call light.
--- NOTE | 2018-06-26 11:55 | SUR.PHASEI ---
Pt transferred to the floor. VS stable. O2 sat 94-96%RA. Rt shoulder drsg cdi. Sling in place. IV saline locked. Belongings bag, insulin pump/pouch, and two books in patient's room. Pt's son notified pt transferred to [id number].
[2018-06-26] MEDS: ASCORBIC ACID 500 MG TABLET 1000 MG PO (12:33)
[2018-06-26] MEDS: buPROPion XL 150 MG TAB 300 MG PO (12:33)
[2018-06-26] MEDS: MULTIVITAMIN 1 TABLET 1 TAB PO (12:33)
[2018-06-26] MEDS: ACETAMINOPHEN 325 MG TABLET 975 MG PO ×2 (13:26→19:56)
[2018-06-26] MEDS: OXYCODONE IR 5 MG TABLET PO ×3 (13:26→21:18)
--- NOTE | 2018-06-26 15:26 | PC.NURSE ---
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 Can't find it in her chart.
--- NOTE | 2018-06-26 16:34 | PC.NURSE ---
Pt awake and alert sitting @ side of bed. Denies pain. Verbally engaged with visitor and son who are present in pt's room. Admits to numbness of right hand digits minus 5th finger. Able to fire watchman and palpable radial pulse present. Warm and pink extremities. RUE immobilized in sling. Aquacel to right shoulder with compressed hemovac. Instructed to call staff when needing/desiring out of bed.
--- NOTE | 2018-06-26 17:10 | PC.NURSE ---
Addendum entered by Renetta Yoo R.N. 06/26/18 21:33: Pt ambulatory in hallway with walker and GRAINING OPERATOR escort. Checks own blood sugar often with hs reading 336 and pt bolused self with 3.9 units insulin. Taking oral fluids and foods well. Admits to pain 10/10 to right shoulder with full sensation to right fingers. Palpable radial pulse with strong sole molder. Pt given 5 mg oxycodone with tylenol by float RN and pt denies any relief. Has ice to right shoulder and position change was provided. Right UE in sling and supported with pillow x 1. Administered 0.5 mg iv dilaudid and pt reports some pain relief now 8/10. Administered 5 mg oxycodone as order per emar is for 5-10 mg. This 5 mg dose totals 10 mg. Will continue to monitor for ability to rest. Original Note: AC blood glucose check 394. Pt bolused self with 9.8 units of insulin per insulin pump.
--- NOTE | 2018-06-26 17:42 | PT.IIE ---
Current Diagnoses Type 1 diabetes mellitus without complications (06/26/18) Essential (primary) hypertension (06/26/18) Bronchitis, not specified as acute or chronic (06/26/18) Chronic obstructive pulmonary disease, unspecified (06/26/18) Other displaced fracture of upper end of right humerus, initial encounter for closed fracture (06/26/18) Surgery Performed Operation Date: 06/26/18 07:45 Actual Procedures p Total Shoulder Arthroplasty - Reverse(Right) - Ion Hall MD Surgical History (Last Updated 06/24/18 @ 12:00 by Ariane Quinteros RN) H/O total hysterectomy (Acute) History of mastectomy (Acute) History of tonsillectomy (Acute) Hx of cataract surgery (Acute) Medical History (Last Updated 06/24/18 @ 11:40 by Ariane Quinteros RN) COPD (chronic obstructive pulmonary disease) (Acute) Cyst (Acute) Diabetes mellitus type 1 (Acute) Dyslipidemia (Acute) Elevated BUN (Acute) Essential hypertension (Acute) Former cigarette smoker (Acute) GERD (gastroesophageal reflux disease) (Acute) History of UTI (Acute) History of breast cancer (Acute) Humerus fracture (Acute) Hypoglycemia (Acute) Iron deficiency anemia (Acute) Osteoarthritis (Acute) Tremor (Acute) Physical Therapy Inpatient Evaluation/Re-Eval M1 PT/OT-IP Prior Functional Status Start: 06/26/18 17:07 Freq: NEEDED Status: Active Protocol: Document 06/26/18 16:20 (Rec: 06/26/18 17:40 [email or web address]) Medical Review Prior Functional Status Medical History Reviewed Yes Communication No deficits noted. Mobility and Gait Pt is an independent home and community ambulator no AD. Activities of Daily Living and IADL's Independent for all self care, toileting, showering and IADLs no AD. Prior Functional Level (Other details) Pt's landlord assited patient ADLs since her injury before sx. Social History Household Members friend(s) Living Arrangements House Number of Floors (Floors) One Floor Number of Stairs To Enter/Railing? no BETY Home Environment Standard Height Toilet Walk in Shower Employment Status Retired Additional Social History Comment Pt rents a bedroom at a 1 story house from her friend who assisted her for ADLs since her injury until surgery . Pt does need any AD for ADLs and IADLs prior to injury. Pt 's son participated PT with pt today who is a RN. M2 PT-IP Current Condition Start: 06/26/18 17:07 Freq: NEEDED Status: Active Protocol: Document 06/26/18 16:20 HH (Rec: 06/26/18 17:40 [email or web address]) Physical Therapy Current Condition Current Condition Evaluation Date 06/26/18 Treatment Diagnosis R reverse total shoulder replacement; difficulty with walking Onset Date 06/26/18 Precautions Shoulder Precautions Sling Pendulums M3 PT-IP Subjective Start: 06/26/18 17:07 Freq: NEEDED Status: Active Protocol: Document 06/26/18 16:20 HH (Rec: 06/26/18 17:40 [email or web address]) Subjective Physical Therapy Visit Type Type Initial Evaluation Visit Start Time 16:20 Visit Stop Time 17:00 Total Visit Minutes 40 Notes Pt agreeable to mobilize with PT. Pt c/o R shoulder pain 5/ 10. Pt received surgery this morning who already amb with [employer]SP[employer]IVER for toileting early this afternoon. Pt was seen with her son in pt's room who is a RN as well. Pt appeared no acute distress and was able to recall her injury history and AxO x 4. Pt had her post op arm sling on and an ice pack on her R shoulder when she was seen. Physical Therapy Visit Comments Patient Comments Pt c/o right shoulder pain 5/ 10 but she states I did go to bathroom with a [employer] early this afternoon with my FWW. I didnt walk as fast like before surgery is probably due to the drug effect from surgery. I feel like my balance is not as good at this point. Patient Goals To be able to move her R shoulder again in pain free To go home. To participate rehab for her R shoulder Therapy Pain Assessment Pain When Pain Assessed At Rest Pain Present Pain Present Pain Reported Location Right Shoulder Intensity 5 Scale Used Numeric (1 - 10) Description Acute Pain Management Techniques Apply Cold M4 PT-IP Mobility and Gait Start: 06/26/18 17:07 Freq: NEEDED Status: Active Protocol: Document 06/26/18 16:20 HH (Rec: 06/26/18 17:40 [email or web address]) PT-Bed Mobility Assessment Supine to Sit Supine to Sit Standby Assistance Sit to Supine Sit to Supine Standby Assistance Scooting Scooting to Edge of Bed Standby Assistance PT-Transfer Assessment Sit to and From Stand Sit to and from Stand Standby Assistance Use of Upper Extremities Equipment Transfer Assistive Device Gait Belt Front Wheeled Walker Transfers Transfer Destination Toilet Transfer Ability Level of Assist Standby Assistance Use of Upper Extremities Comments Mobility Comments Pt performed supine to sit from EOB 30 degrees with SBA; sit to stand with use of L UE on FWW SBA; toilet transfer with grab bar and FWW with the use of L UE for assistance. Pt demonstrates safe transfer with no signs of LOB and difficulty negotiating obstacles. Gait Assessment Gait Gait Assistance Required: Standby Assistance Distance (Feet) 10 Able to Maintain Weight Bearing Status Yes During Gait Assistive Devices Assistive Device Gait Belt Front Wheeled Walker Gait Deviations General Gait Pattern Decreased Stride Length Decreased Feet Clearance Factors Limiting Gait Function Factors Limiting Gait Function Decreased Activity Tolerance Decreased Sensation Decreased Strength Pain Comments Gait Comments Pt amb from bed to bathroom with FWW SBA safely and did not require verbal cues and tactile cues. Pt did demonstrate difficulty using FWW with her L UE for steering . Pt was then instructed to use WBQC on L UE to amb from bathroom back to bedside. However, Pt demonstrated decreased stride length and feet clearance possibly due to anesthesia effect from surgery. Pt stated I dont feel too steady today because of those drugs from surgery i think. Pt also c/o fatigue after amb from bathroom to bed and requested to go back to bed for rest. Attempt WBQC tomorrow to improve gait efficiency compared to FWW. Stair Climbing Assessment Comments Stair Climbing Comments did not attempt PT-Balance Assessment Sitting Balance and Reactions Static Sitting Balance Ability Normal Dynamic Sitting Balance Ability Normal Standing Balance and Reactions Static Standing Balance Ability Normal Dynamic Standing Balance Ability Normal M5 PT-IP Objective Assessments Start: 06/26/18 17:07 Freq: NEEDED Status: Active Protocol: Document 06/26/18 16:20 (Rec: 06/26/18 17:40 [email or web address]) Orientation Orientation/Cognition Level of Alertness Alert Orientation Name Age Birthday Month Date Year Day of Week Place Situation Language Function Ability No Deficits Noted Gross Range of Motion Upper Extremity ROM Assessment Right Impaired Lower Extremity ROM Assessment Within Functional Limits Strength Upper Extremity Strength Assessment Right Impaired Lower Extremity Strength Assessment Within Functional Limits Coordination Assessment Gross Coordination Gross Coordination WNL Sensation Assessment Sensation Gross Sensation WNL M6 PT-IP Treatment Start: 06/26/18 17:07 Freq: NEEDED Status: Active Protocol: Document 06/26/18 16:20 HH (Rec: 06/26/18 17:40 HH [email or web address]) Physical Therapy Treatment Exercises Exercises Ankle Pumps Gluteal Sets Quad Sets Heel Slides Straight Leg Raises Shoulder Pendulums Education Education Provided Precautions Post-Op Packet Safety Other Treatments Other Treatment Performed Patient and CG were instructed on pendulum exercise; therex as mentioned above and the use of WBQC. M7 PT-IP Assessment and Plan Start: 06/26/18 17:07 Freq: NEEDED Status: Active Protocol: Document 06/26/18 16:20 HH (Rec: 06/26/18 17:40 HH [email or web address]) PT Summary Assessment and Plan Potential Rehabilitation Potential Excellent Status of Condition at Evaluation Stable Summary Impairments Pain ROM Strength Activity Tolerance Progress Towards Goals Progressing Toward Goals Assessment Summary Pt appears to have no acute distress besides pain at the surgical site. Pt was A&O x 4 who is able to recall her injury and surgical history. Pt is also aware of her safety and precautions for d/c. Pt was also able to demonstrate safe amb and toilet transfer with the use of FWW by her L UE SBA. However, pt did demonstrate difficulty while steering her FWW at turns. Recommend to attempt WBQC or SPC for optimizing gait efficiency and fall prevention tomorrow before D/C to home. Goals Bed Mobility Goal Standby Assistance Transfer Goal Independent Gait Goal Independent Gait Distance 100 feet Other Goals To be able to use WBQC or SPC for ambulation Frequency of Treatment Frequency Of Treatment Twice a Day Treatment Plan Physical Therapy Treatment Plan Gait Training Therapeutic Exercise Post Op Education Discharge Planning Hot or Cold Pack Neuromuscular Re-ed Other Recommendations and Next Treatment attempt WBQC/ SPC for L UE Focus Recommendations To Nursing Amount of Assist Needed Standby Assistance 1 Person Assist Discharge Recommendations PT Discharge Recommendations Home Outpatient PT Equipment Needed for Home Before SPC/ WBQC Discharge
--- NOTE | 2018-06-26 17:48 | P.CONS_ITS ---
History of Present Illness Date Patient Seen: 06/26/18 Time Patient Seen: 17:41 Chief complaint: [id number] Reason for consult: UNCONTROLLED DM Requesting provider: Ion Hall Narrative: - PATIENT WITH A PAST MEDICAL HISTORY SIGNIFICANT FOR DM2 ON AN INSULIN PUMP, COPD, HLD, GERD, AND HX OF TOBACCO ABUSE - WAS ADMITTED FOR A REVERSE TOTAL SHOULDER REPLACEMENT BY ORTHOPEDIC SURGERY ATTENDING - SHE WAS OBSERVED TO HAVE A SIGNIFICANTLY ELEVATED BLOOD GLUCOSE DURING ADMISSION AND HA1C REVEALED AN MILDLY UNCONTROLLED DM AT 7.9 - PATIENT EXPLAINED THAT AT HOME, SHE MANAGES HER BLOOD GLUCOSE WITH HER PUMP DEPENDING ON BLOOD GLUCOSE RESULTS - SHE IS SCHEDULED TO MEET WITH EDUCATOR TO HELP WITH BETTER AND PROPER MANAGEMENT OF HER BLOOD GLUCOSE USING THE PUMP. - COMPLAINED OF PAIN TO RT SHOULDER EXPECTED - NO OTHER [facility]PL[facility]TS [facility] Medical History COPD (chronic obstructive pulmonary disease) (Acute) Cyst (Acute) Diabetes mellitus type 1 (Acute) Dyslipidemia (Acute) Elevated BUN (Acute) Essential hypertension (Acute) Former cigarette smoker (Acute) GERD (gastroesophageal reflux disease) (Acute) History of UTI (Acute) History of breast cancer (Acute) Humerus fracture (Acute) Hypoglycemia (Acute) Iron deficiency anemia (Acute) Osteoarthritis (Acute) Tremor (Acute) Surgical History H/O total hysterectomy (Acute) History of mastectomy (Acute) History of tonsillectomy (Acute) Hx of cataract surgery (Acute) Family History Mother Heart disease Heart attack Father Dementia Bladder cancer Social History household members: friend(s) Smoking Status: Former smoker alcohol intake: current Meds Home Medications Medication Instructions Recorded Confirmed Type ascorbic acid (vitamin C) 1,000 mg PO QDAY #0 07/15/17 06/26/18 History glucosamine sulfate [Kadi] 1 tab PO QDAY #0 07/15/17 06/26/18 History multivitamin [Multiple Vitamins] 1 tab PO QDAY #0 07/15/17 06/26/18 History amlodipine 5 mg tablet 5 mg PO DAILY 02/13/18 06/26/18 History blood sugar diagnostic strips #20 each 02/13/18 06/26/18 History bupropion HCl XL 300 mg 24 hr 300 mg PO QAM 02/13/18 06/26/18 History tablet, extended release cholecalciferol (vitamin D3) 2,000 2,000 unit PO DAILY 02/13/18 06/26/18 History unit capsule cyanocobalamin (vit B-12) 500 mcg 500 mcg PO DAILY 02/13/18 06/26/18 History tablet omega-3 fatty acids 1,000 mg 1,000 mg PO DAILY 02/13/18 06/26/18 History capsule omeprazole magnesium 20 mg 40 mg PO DAILY 02/13/18 06/26/18 History tablet,delayed release pravastatin 40 mg tablet 40 mg PO DAILY 02/13/18 06/26/18 History trandolapril 4 mg tablet 4 mg PO DAILY 02/13/18 06/26/18 History insulin lispro [Humalog U-100 1.8 ml CONTINUOUS SUBCUTANEOUS 04/16/18 06/26/18 History Insulin] INFUSION Q3D hydrocodone 5 mg-acetaminophen 325 1 tab PO Q4-6H PRN #10 tab 06/17/18 06/26/18 Rx mg tablet aspirin 81 mg PO DAILY 06/24/18 06/26/18 History calcium-magnesium 1 tab PO DAILY 06/24/18 06/26/18 History fluticasone-salmeterol [Advair 1 inh INHALATION BID 06/24/18 06/26/18 History Diskus] psyllium husk [Fiber Therapy 2 cap PO SEEINSTR 06/24/18 06/26/18 History Laxative (husk)] vitamin C07-[id number] acid 1 tab PO DAILY 06/24/18 06/26/18 History Allergies Allergy/AdvReac Type Severity Reaction Status Date / Time No Known Drug Allergies Allergy Verified 06/24/18 09:28 Review of Systems Review of Systems All systems reviewed & are unremarkable except as noted in HPI and below Exam Vital Signs (past 8 hours): - 06/26/18 10:50 06/26/18 10:55 06/26/18 11:00 Temperature 97.7 F Pulse Rate 97 H 97 H 92 H Respiratory Rate 19 24 28 H Blood Pressure 132/51 L 131/55 L 140/52 L Pulse Oximetry 96 93 97 06/26/18 11:05 06/26/18 11:20 06/26/18 11:35 Temperature 98.5 F Pulse Rate 91 H 87 84 Respiratory Rate 18 10 L 13 Blood Pressure 143/65 H 142/61 H 145/59 H Pulse Oximetry 95 96 94 06/26/18 11:45 06/26/18 12:15 06/26/18 12:45 Temperature 99.1 F 98.2 F 98.4 F Pulse Rate 86 89 94 H Respiratory Rate 16 20 16 Blood Pressure 142/69 H 121/75 148/74 H Pulse Oximetry 94 96 96 06/26/18 13:45 06/26/18 14:45 06/26/18 16:18 Temperature 99.3 F 98.3 F 98.8 F Pulse Rate 91 H 101 H 100 H Respiratory Rate 16 20 20 Blood Pressure 145/71 H 145/69 H 152/70 H Pulse Oximetry 98 96 100 Oxygen Delivery Method Room Air Oxygen Flow Rate 0 Narrative Exam Narrative: NO ACUTE DISTRESS. PATIENT IS ALERT ORIENTED X3. VITAL SIGNS STABLE HEAD ATRAUMATIC NORMOCEPHALIC NECK : SUPPLE WITHOUT ADENOPATHY EYE: EOMI, PERRLA, NORMAL CONJUNCTIVA CHEST: REGULAR RATE.. NO RUBS. PMI IS NON DISPLACED. NO MURMURS PULMONARY: DECREASED BS OVER THE BASES. MILD BIBASILAR CRACKLES NOTED; NO INCREASED DULLNESS TO PERCUSSION ABDOMEN: SOFT; NON TENDER; BS + IN ALL 4 QUAD EXTREMITIES:NO EDEMA.. NO CYANOSIS OR CLUBBING NOTED. NEURO: CRANIAL NERVES 2-12 GROSSLY INTACT. NO FOCAL NEUROLOGICAL DEFICIT NOTED. MSK: PAIN WITH ATTEMPTED ACTIVE OR PASSIVE ROM ON THE RT ; SURGICAL DRAIN AND CLOSED INCISION NOTED; SLING IN PLACE SKIN: NORMAL FOR ETHNICITY; NO ECCHYMOSIS. NO LESION. GOOD TURGOR.; NO RASHES : NORMAL EXTERNAL GENITALIA. PSYCH : APPROPRIATE MOOD AND AFFECT. ALERT AWAKE ORIENTED X3 Assessment & Plan Plan: Assessment/Plan Narrative: IMPRESSION AND PLAN S/P D#O COMPLETE RT SHOULDER REPLACEMENT; MANAGED BY SURGICAL TEAM; MONITOR FOR S/S OF ACUTE COMPLICATIONS; 5 W,S; PT/OT PER ORTHO RESTRICTIONS; FALL AND ASPIR PRECAUTIONS; INCENTIVE SPIROMETERY; AMBULATE TID; OOB/ IN CHAIR WITH EACH MEAL UNCONTROLLED DM; HOWEVER A1C IS ONLY MILDLY OUT OF RANGE; NO INPATIENT MANAGEMENT RECOMENDED; PATIENT TO CONTINUE USING HER PUMP PREVIOUSLY INSTRUCTED FOR NOW; SHE WOULD FOLLOW UP WITH HER MERCHANDISING ASSISTANT TO ARRANGE FOR PROPER TEACHING IN REGARD TO THE USE OF THE MACHINE FOR BETTER CONTROL OF HER BG : CALORIE COUNTING/WHEN TO BOLUS/ETC COPD PER HX; NO S/SO OF ACUTE EXACERBATION; PRN DUONEBS TX INDICATED OBESITY; OUTPATIENT MANAGEMENT HLD; HOME MEDS GERD PER HX; PROTONIX/PEPCID WHILE INPATIENT ; ADDITIONAL MANAGEMENT PER OP PROVIDERS ADDITIONAL MANAGEMENT INDICATED CLINICALLY DC PER SURGICAL TEAM APPRECIATE THIS CONSULT, WILL FOLLOW WITH YOU.
[2018-06-26] MEDS: DOCUSATE 100 MG CAPSULE PO (19:57)
[2018-06-26] MEDS: SODIUM CHLORIDE 0.9% FLUSH 10 ML IV ×3 (19:57→20:36)
[2018-06-26] MEDS: FLUTICASONE/SALMETEROL 250/50 14 PUFF DISKUS INH (19:57)
[2018-06-26] MEDS: HYDROMORPHONE 2 MG INJ 0.5 MG IV ×2 (20:30→23:39)
[2018-06-26] MEDS: ONDANSETRON 4 MG ODT PO (21:39)
[2018-06-27] MEDS: OXYCODONE IR 5 MG TABLET PO (03:59)
[2018-06-27] MEDS: FLUTICASONE/SALMETEROL 250/50 14 PUFF DISKUS INH (05:02)
[2018-06-27 05:05] VITALS: PULSE 69; RESP 14; O2SAT 97
[2018-06-27 05:41] LABS: Hematocrit 32.9 % (36-46); Hemoglobin 10.7 g/dL (12.0-16.0); Mean Corpuscular HGB Conc 32.3 % (30-36); Mean Corpuscular Hemoglobin 28.4 PG (26-34); Mean Corpuscular Volume 87.7 fL (80-100); Platelet Count 311 X10^3/uL (150-400); Red Blood Cell Count 3.76 X10^6/uL (4.0-5.2); Red Cell Distribution Width 15.8 % (11.6-14.8)
[2018-06-27 05:54] VITALS: BP 137/87; PULSE 79; RESP 16; TEMP 37.4
[2018-06-27 08:00] VITALS: BP 157/71; PULSE 83; RESP 16; TEMP 36.8; O2SAT 98
[2018-06-27] MEDS: OXYCODONE IR 10 MG TABLET PO ×2 (08:00→10:59)
[2018-06-27] MEDS: ASPIRIN EC 81 MG TABLET PO (08:00)
[2018-06-27] MEDS: ASCORBIC ACID 500 MG TABLET 1000 MG PO (08:01)
[2018-06-27] MEDS: PRAVASTATIN 20 MG TABLET 40 MG PO (08:01)
[2018-06-27] MEDS: DOCUSATE 100 MG CAPSULE PO (08:02)
[2018-06-27] MEDS: PANTOPRAZOLE 40 MG TABLET PO (08:02)
[2018-06-27] MEDS: AMLODIPINE 5 MG TABLET PO (08:02)
[2018-06-27] MEDS: CHOLECALCIFEROL (VITAMIN D3) 1,000 UNIT TABLET 2000 UNIT PO (08:02)
[2018-06-27] MEDS: CYANOCOBALAMIN (VITAMIN B-12) 500 MCG TABLET PO (08:02)
[2018-06-27] MEDS: FISH OIL 1,000 MG CAPSULE 1000 MG PO (08:02)
[2018-06-27] MEDS: MULTIVITAMIN 1 TABLET 1 TAB PO (08:02)
[2018-06-27] MEDS: ACETAMINOPHEN 325 MG TABLET 975 MG PO (08:09)
[2018-06-27] MEDS: buPROPion XL 150 MG TAB 300 MG PO (08:15)
[2018-06-27] MEDS: POLYETHYLENE GLYCOL 3350 17 GM POWD.PACK PO (08:16)
--- NOTE | 2018-06-27 08:44 | P.DS_ITS ---
History of Present Illness Date Patient Seen: 06/27/18 Time Patient Seen: 08:30 Chief complaint: [id number] Narrative: History and physical for this patient is contained in the chart and a previously completed note. Please refer to that note for this information. Discharge Providers Date of admission: 06/26/18 06:19 Primary care physician: Maynor Mae MD Consults: 06/24/18 12:04 Consult to Pastoral Services Routine Comment: Surgery 0745, plans one night stay, [facility] Consult to Cardiology Physician Assistant Routine Comment: Rents a room, son will only be here 2 days 06/26/18 11:50 Consult to Discharge Planning Routine Comment: Consult to Hospitalist Service Routine Comment: Consulting Provider: Herbert Mcgarry Reason for consultation: insulin management Has provider been notified: Yes Consult to Physical Therapy Evaluate & Treat Comment: Pendulum exercises only Physician Instructions: Evaluate and Treat Consult to Respiratory Therapy Evaluate & Treat Comment: Physician Instructions: Evaluate and treat 06/26/18 12:20 Consult to Pastoral Services Routine Comment: Pt would like to talk Discharge provider: Ion Hall MD Discharge Date: 06/27/18 Summary Discharge Diagnosis: 1. Comminuted displaced closed fracture of the right proximal humerus 2. Diabetes mellitus 3. Anticipated acute post hemorrhagic anemia Hospital Course: The patient was admitted the hospital and taken directly to the operating room on June 26, 2018. She underwent a reverse total shoulder replacement and fixation of a displaced fracture of her tuberosities of the right humerus. On postoperative day 1 she had moderate pain control issues however these appeared to be improving. She was seen to be neurologically intact with intact light touch in the radial, ulnar, median, muscular cutaneous and axillary nerve distributions. She could extend her thumb, abduct her thumb, abduct her fingers, as well as fire her biceps and deltoid. At the time of this dictation is felt she will be ready for discharge later in the day. Status at Discharge Cognitive/behavioral status at discharge: Baseline Functional status at discharge: independent ambulation Overall status at discharge: patient is progressing back to baseline Time Spent with Patient Less than 30 minutes Exam Vital Signs (past 8 hours): - 06/27/18 05:05 06/27/18 05:54 Temperature 99.4 F Pulse Rate 69 79 Respiratory Rate 14 16 Blood Pressure 137/87 Pulse Oximetry 97 Oxygen Delivery Method Room Air Oxygen Flow Rate 0 Narrative Exam Narrative: Right upper extremity wound is dressed with no significant drainage on the bandage. Light touch and motion are intact as dictated in the narrative above. Objective Labs Result Diagrams: 06/27/18 05:15 Labs: Laboratory Results - last 24 hr 06/27/18 05:15 WBC 15.0 H RBC 3.76 L Hgb 10.7 L Hct 32.9 L MCV 87.7 MCH 28.4 MCHC 32.3 RDW 15.8 H Plt Count 311 Radiographs show a well reduced tuberosity fracture around a well-positioned reverse total shoulder replacement. Discharge Plan Discharge Plan Patient Disposition: Home Discharge Med Rec/Prescriptions Prescriptions: New acetaminophen 325 mg Tablet 975 mg PO TID Qty: 0 RF: 0 amlodipine [Norvasc] 5 mg Tablet 5 mg PO DAILY Qty: 0 RF: 0 docusate sodium 100 mg Capsule 100 mg PO BID Qty: 0 RF: 0 oxycodone 5 mg Tablet 5 mg PO Q4-6H PRN (Reason: Pain, Moderate (4-6)) Qty: 40 RF: 0 Continue amlodipine 5 mg tablet 5 mg PO DAILY RF: 0 blood sugar diagnostic [Contour Next Test Strips] strip .ROUTE .MEDSUPPLY Qty: 20 RF: 0 bupropion HCl 300 mg tablet extended release 24 hr 300 mg PO QAM RF: 0 pravastatin 40 mg tablet 40 mg PO DAILY RF: 0 trandolapril 4 mg tablet 4 mg PO DAILY RF: 0 omeprazole magnesium [Prilosec OTC] 20 mg tablet,delayed release (DR/EC) 40 mg PO DAILY RF: 0 cyanocobalamin (vitamin B-12) [Vitamin B-12] 500 mcg tablet 500 mcg PO DAILY RF: 0 cholecalciferol (vitamin D3) 2,000 unit capsule 2,000 unit PO DAILY RF: 0 omega-3 fatty acids [Fish Oil Concentrate] 1,000 mg capsule 1,000 mg PO DAILY RF: 0 multivitamin [Multiple Vitamins] 1 EACH tablet 1 tab PO QDAY Qty: 0 RF: 0 ascorbic acid (vitamin C) 500 MG tablet 1,000 mg PO QDAY Qty: 0 RF: 0 glucosamine sulfate [Kadi] 750 MG tablet 1 tab PO QDAY Qty: 0 RF: 0 insulin lispro [Humalog U-100 Insulin] 100 unit/mL Cartridge 1.8 ml Continuous Subcutaneous Infusion Q3D RF: 0 fluticasone-salmeterol [Advair Diskus] 250-50 mcg/dose Blister With Device 1 inh INHALATION BID RF: 0 aspirin 81 mg Tablet,Delayed Release (Dr/Ec) 81 mg PO DAILY RF: 0 calcium-magnesium 300-300 mg Tablet 1 tab PO DAILY RF: 0 psyllium husk [Fiber Therapy Laxative (husk)] 0.52 gram Capsule 2 cap PO SEEINSTR RF: 0 vitamin [id number]-[id number] acid 500-400 mcg Tablet 1 tab PO DAILY RF: 0 Discontinued hydrocodone-acetaminophen [[place]] 5-325 mg tablet 1 tab PO Q4-6H PRN (Reason: pain) Qty: 10 RF: 0 Follow up/Referrals: Ion Hall MD [Physician] - 2 Weeks Provider Discharge Instructions Diet: Diet as Tolerated and Carb-consistent/Diabetic Cold/Heat Therapy: Apply ice to the right shoulder for 15 min every hour as needed. Other treatments: Monitor your blood sugars and if you are having trouble with control please contact Dr. Mae at his office. Skin/Wound/Dressing Care Report to your healthcare provider any signs of infection, such as:: chills, fever, night sweats, increased pain, unusual drainage and unusual redness Dressing: Leave the dressing in place until seen in the office. You may shower with the dressing in place. If the central strip of the dressing becomes saturated with either water or blood you need to contact us to have it changed. Discharge Data Primary Care Provider: Maynor Mae Attending Provider: Ion Hall Admit Date/Time: 06/26/18 06:19 Quality VTE Deep Vein Thrombosis/Pulmonary Embolism Present on Admission: No
--- NOTE | 2018-06-27 09:08 | P.PN_ITS ---
Subjective Date Patient Seen: 06/27/18 Time Patient Seen: 07:17 Interval history: HAD SIGNIFICANT PAIN AND DISCOMFORT OVERNIGHT BETTER THIS AM NO CP/SOB NO FEVER OR CHILLS SPOKE TO PATIENT WITH FAMILY AT BEDSIDE Exam Vital Signs (past 8 hours): - 06/27/18 05:05 06/27/18 05:54 Temperature 99.4 F Pulse Rate 69 79 Respiratory Rate 14 16 Blood Pressure 137/87 Pulse Oximetry 97 Oxygen Delivery Method Room Air Oxygen Flow Rate 0 Narrative Exam Narrative: NO ACUTE DISTRESS. PATIENT IS ALERT ORIENTED X3. VITAL SIGNS STABLE HEAD ATRAUMATIC NORMOCEPHALIC NECK : SUPPLE WITHOUT ADENOPATHY EYE: EOMI, PERRLA, NORMAL CONJUNCTIVA CHEST: REGULAR RATE.. NO RUBS. PMI IS NON DISPLACED. NO MURMURS PULMONARY: DECREASED BS OVER THE BASES. MILD BIBASILAR CRACKLES NOTED; NO INCREASED DULLNESS TO PERCUSSION ABDOMEN: SOFT; NON TENDER; BS + IN ALL 4 QUAD EXTREMITIES:NO EDEMA.. NO CYANOSIS OR CLUBBING NOTED. NEURO: CRANIAL NERVES 2-12 GROSSLY INTACT. NO FOCAL NEUROLOGICAL DEFICIT NOTED. MSK: PAIN WITH ATTEMPTED ACTIVE OR PASSIVE ROM ON THE RT ; SURGICAL DRAIN AND CLOSED INCISION NOTED; SLING IN PLACE SKIN: NORMAL FOR ETHNICITY; NO ECCHYMOSIS. NO LESION. GOOD TURGOR.; NO RASHES : NORMAL EXTERNAL GENITALIA. PSYCH : APPROPRIATE MOOD AND AFFECT. ALERT AWAKE ORIENTED X3 Objective Labs Result Diagrams: 06/27/18 05:15 Labs: Laboratory Results - last 24 hr 06/27/18 05:15 WBC 15.0 H RBC 3.76 L Hgb 10.7 L Hct 32.9 L MCV 87.7 MCH 28.4 MCHC 32.3 RDW 15.8 H Plt Count 311 Assessment & Plan Plan: Assessment/Plan Narrative: IMPRESSION AND PLAN S/P D#1 COMPLETE RT SHOULDER REPLACEMENT; MANAGED BY SURGICAL TEAM; CONT TO MONITOR FOR S/S OF ACUTE COMPLICATIONS; 5 W,S; PT/OT ORDERED PER ORTHO RESTRICTIONS; FALL AND ASPIR PRECAUTIONS; INCENTIVE SPIROMETERY; AMBULATE TID; OOB/ IN CHAIR WITH EACH MEAL UNCONTROLLED DM; HOWEVER A1C IS ONLY MILDLY OUT OF RANGE; NO INPATIENT MANAGEMENT RECOMMENDED OR INDICATED; PATIENT TO CONTINUE USING HER PUMP PREVIOUSLY INSTRUCTED FOR NOW; SHE WOULD FOLLOW UP WITH HER SENIOR SOFTWARE ENGINEER ANALYTICS TO ARRANGE FOR PROPER TEACHING IN REGARD TO THE USE OF THE MACHINE FOR BETTER CONTROL OF HER BG: CALORIE COUNTING/WHEN TO BOLUS/ETC COPD PER HX; NO S/SO OF ACUTE EXACERBATION; PRN DUONEBS TX INDICATED OBESITY; OUTPATIENT MANAGEMENT HLD; HOME MEDS GERD PER HX; PROTONIX/PEPCID WHILE INPATIENT ; ADDITIONAL MANAGEMENT PER OP PROVIDERS LEUKOCYTOSIS; LIKELY ACUTE REACTANT TO SURG PROCEDURE; MONITOR FOR NOW ADDITIONAL MANAGEMENT INDICATED CLINICALLY PATIENT IS CLINICALLY STABLE AND CLEARED FOR DC IN MEDICINE STANDPOINT WILL SIGN OFF; THANKS FOR THIS KIND CONSULT Quality VTE Deep Vein Thrombosis/Pulmonary Embolism Present on Admission: No
--- NOTE | 2018-06-27 10:30 | PT.IPTN ---
Current Diagnoses Type 1 diabetes mellitus without complications (06/26/18) Essential (primary) hypertension (06/26/18) Bronchitis, not specified as acute or chronic (06/26/18) Chronic obstructive pulmonary disease, unspecified (06/26/18) Other displaced fracture of upper end of right humerus, initial encounter for closed fracture (06/26/18) Surgery Performed Operation Date: 06/26/18 07:45 Actual Procedures p Total Shoulder Arthroplasty - Reverse(Right) - Ion Hall MD Physical Therapy Treatment Note M2 PT-IP Current Condition Start: 06/26/18 17:07 Freq: NEEDED Status: Active Protocol: Document 06/27/18 10:30 [facility] (Rec: 06/27/18 11:15 [facility] [id number]) Physical Therapy Current Condition Current Condition Evaluation Date 06/26/18 Treatment Diagnosis R reverse total shoulder replacement; difficulty with walking Onset Date 06/26/18 Precautions Shoulder Precautions Sling Pendulums Other Precautions pendulums only x6 wks Weight Bearing Status Weight Bearing Status Non-Weight Bearing Allowed Weight Bearing Amount (enter % NWB RUE or #) (%) M3 PT-IP Subjective Start: 06/26/18 17:07 Freq: NEEDED Status: Active Protocol: Document 06/27/18 10:30 RCC (Rec: 06/27/18 11:15 [facility] [id number]) Subjective Physical Therapy Visit Type Type Treatment Note Visit Start Time 09:55 Visit Stop Time 10:30 Total Visit Minutes 35 Physical Therapy Visit Comments Patient Comments Pt reports she does not feel steady on her feet without an assistive device, the walker won't fit in her room and she is only able to use her LUE. Therapy Pain Assessment Pain Present Pain Present Pain Reported Location Right Shoulder Intensity 5 Scale Used Numeric (1 - 10) Description Acute M4 PT-IP Mobility and Gait Start: 06/26/18 17:07 Freq: NEEDED Status: Active Protocol: Document 06/27/18 10:30 RCC (Rec: 06/27/18 11:15 [facility] [id number]) PT-Bed Mobility Assessment Scooting Scooting to Edge of Bed Independent PT-Transfer Assessment Sit to and From Stand Sit to and from Stand Standby Assistance Equipment Transfer Assistive Device Gait Belt Small Based Quad Cane Transfers Transfer Destination Bed Transfer Ability Level of Assist Standby Assistance Gait Assessment Gait Gait Assistance Required: Standby Assistance Distance (Feet) 145 Assistive Devices Assistive Device Gait Belt Straight Cane Gait Deviations General Gait Pattern Step-to Gait Factors Limiting Gait Function Factors Limiting Gait Function Decreased Activity Tolerance Comments Gait Comments Pt ambulated 50 ft with quad cane and 3-point gait, then 95 ft with SPC and 3-point gait intially, then progressed to 2 -point step-through pattern with SBA. Occasional mis-step but good use of SPC to maintain balance. M5 PT-IP Objective Assessments Start: 06/26/18 17:07 Freq: NEEDED Status: Active Protocol: Document 06/26/18 16:20 HH (Rec: 06/26/18 17:40 HH [id number]) Orientation Orientation/Cognition Level of Alertness Alert Orientation Name Age Birthday Month Date Year Day of Week Place Situation Language Function Ability No Deficits Noted Gross Range of Motion Upper Extremity ROM Assessment Right Impaired Lower Extremity ROM Assessment Within Functional Limits Strength Upper Extremity Strength Assessment Right Impaired Lower Extremity Strength Assessment Within Functional Limits Coordination Assessment Gross Coordination Gross Coordination WNL Sensation Assessment Sensation Gross Sensation WNL M6 PT-IP Treatment Start: 06/26/18 17:07 Freq: NEEDED Status: Active Protocol: Document 06/27/18 10:30 RCC (Rec: 06/27/18 11:15 [facility] [id number]) Physical Therapy Treatment Education Education Provided Precautions Post-Op Packet Safety Equipment Issued Equipment Type and Company SPC from [facility]. Other Treatments Other Treatment Performed Review and performed pendulums x1 min with pt, also education on dressing and don/ doff sling with pt and son M7 PT-IP Assessment and Plan Start: 06/26/18 17:07 Freq: NEEDED Status: Active Protocol: Document 06/27/18 10:30 RCC (Rec: 06/27/18 11:15 [facility] [id number]) PT Summary Assessment and Plan Summary Assessment Summary Pt is able to ambulate with a SPC safely, high recommend that she be issued one for home use due to her impairments with gait and balance, as well as NWB through the RUE. Son was present during session, and both pt and son educated on safe performance of pendulums, sling don/doffing, and gait training with SPC. Pt is cleared to d/c home when medically stable, verbal from Dr. Hall for SPC for home use . Frequency of Treatment Frequency Of Treatment Twice a Day Treatment Plan Other Recommendations and Next Treatment prog. gait, review pendulums Focus Recommendations To Nursing Amount of Assist Needed Standby Assistance 1 Person Assist Discharge Recommendations PT Discharge Recommendations Home Outpatient PT Equipment Needed for Home Before SPC Discharge
--- NOTE | 2018-06-27 11:16 | PC.NURSE ---
Pt seen by surgeon and has been discharged home. Plan to go home after lunch. Rates pain at 5/10 and given regular percolone 10mg. UP with PT using cane. H/V drain removed - pt tolerated well. Also IV removed in anticipation of dc today.
--- NOTE | 2018-06-27 14:12 | PC.NURSE ---
Pt given dc paperwork and taken by wheelchair to ER entrance. Declined offer of analgesia prior to departure.
--- NOTE | 2018-06-27 14:28 | CM.IDA ---
Discharge Planning/Care Management CM Discharge Assessment Start: 06/27/18 14:12 Freq: Status: Discharge Protocol: Document 06/27/18 14:12 STEPHEN (Rec: 06/27/18 14:28 STEPHEN [id number]) Discharge Planning Assessment Assigned Semiconductor Technician KATI Byers DPOA/Assigned Designee Name Alexys Parker, tammy Contact Information [phone] Advance Directives? Yes: Advance Health Care Directive, Auth for Release of PHI History Provided By Patient Prior Living Arrangements House Household Members friend(s) Type of transporation used prior to Drives own vehicle admit Independent with ADL's Yes: [employer], works at [employer] x3 days weekly Is patient alert and oriented? Yes Comment Has needed some assist from roommate since GLF/shoulder injury in May. Barriers to Discharge No Comment PT: Home today w/outpt f/u. Met w/pt and her son in this morning, explained role. Pt explains she hopes to go home later today. Dr Hall has placed the DC order pending PT. Pt talked to a home health nurse after she sustained her injury and she is not sure she will need that or if her [employer] plan will cover 100%. This LEARNING AND DEVELOPMENT OFFICER asked son how long he would be able to stay and he says I'm not sure yet. Pt hopes to be able to travel to [place] to spend xmas w/her three sons, which would be in one-two weeks. This LEARNING AND DEVELOPMENT OFFICER asked Dr Hall if he would approve HH for pt if she requested, and he would. Later review of therapy note indicates pt ambulating well, she will leave w/cane for home use. Discharge Plan Home Transportation Arrangement Family Referrals Initiated None needed SNF/HH Preference Can't remember the name of the company, but she's spoken w/ a home health nurse Whiteboard Updated in Patient Room with Yes name and ext. # of Semiconductor Technician Review Status In Process
== END 2018-06-27 14:12 | disposition home or self-care (01) | DRG 483 ==
PROVIDERS: Admitting Provider Orthopaedic Surgery; Family Provider Internal Medicine; PCP Internal Medicine; Visit Provider Orthopaedic Surgery
PROC: 0RRJ00Z Replacement of Right Shoulder Joint with Reverse Ball and Socket Synthetic Substitute, Open Approach (ICD-10-PCS; CPT 23472; principal; 2018-06-26 07:45)
DX: S42.251A Displaced fracture of greater tuberosity of right humerus, initial encounter for closed fracture (principal); S42.261A Displaced fracture of lesser tuberosity of right humerus, initial encounter for closed fracture; W18.30XA Fall on same level, unspecified, initial encounter; E11.65 Type 2 diabetes mellitus with hyperglycemia; Z79.4 Long term (current) use of insulin; J44.9 Chronic obstructive pulmonary disease, unspecified; E78.5 Hyperlipidemia, unspecified; K21.9 Gastro-esophageal reflux disease without esophagitis; Z87.891 Personal history of nicotine dependence; F32.9 Major depressive disorder, single episode, unspecified
CPT/HCPCS: 36415; 64415; 73030; 82962; 85027; 97116; 97161; 97530; C1776; A9270; J0690; J1100; J1170; J2250; J2405; J2704; J2795; J3010